=== PATIENT | male | born 1965 | race African-American/Black ===

== ENCOUNTER 2020-04-29 10:59 | Observation (INO) | payer BC, MEDICAID ==
--- NOTE | 2020-04-29 11:41 | Event Note ---
ED Screening Note Date of service: 04/29/20 Time: 11:41 ED Screening Note: This initial assessment/diagnostic orders/clinical plan/treatment(s) is/are subject to change based on patients health status, clinical progression and re- assessment by fellow clinical providers in the ED. Further treatment and workup at subsequent clinical providers discretion. Patient/guardian urged not to elope from the ED as their condition may be serious if not clinically assessed and managed. Initial orders include: chest pain workup
--- NOTE | 2020-04-29 12:09 | XRay Report ---
CHEST 2 VIEWS INDICATION: Chest Pain. COMPARISON: 04/14/2020 FINDINGS: Support devices: None. Heart: Within normal limits. Lungs/pleura: Linear scarring or segmental atelectasis in the right upper lobe is unchanged. No acute air space or interstitial disease. No pneumothorax. Additional findings: None. IMPRESSION: No acute findings. Stable linear scarring or atelectasis in the right upper lobe. Signer Name: Baltazar Marcos Jr, MD Signed: 04/29/2020 12:04 PM Workstation Name: [id number]
[2020-04-29 12:30] LABS: Basophils # (Auto) 0.1 K/mm3 (0.0-0.1); Eosinophils # (Auto) 0.4 K/mm3 (0.0-0.4); Eosinophils % (Auto) 6.2 % (0.0-4.3); Hematocrit 25.6 % (35.5-45.6); Hemoglobin 8.9 gm/dl (11.8-15.2); Lymphocytes # (Auto) 1.7 K/mm3 (1.2-5.4); Lymphocytes % (Auto) 25.1 % (13.4-35.0); Mean Corpuscular HGB Conc 35 % (32-34); Mean Corpuscular Volume 90 fl (84-94); Monocytes # (Auto) 0.4 K/mm3 (0.0-0.8); Monocytes % (Auto) 6.3 % (0.0-7.3); Platelet Count 155 K/mm3 (140-440); Red Blood Count 2.84 M/mm3 (3.65-5.03); Red Cell Distribution Width 12.5 % (13.2-15.2)
--- NOTE | 2020-04-29 12:30 | Emergency Department Report ---
ED Neuro Deficit HPI - General Chief Complaint: High BP Stated Complaint: HBP/FEET SWELLING/HANDS NUM Time Seen by Provider: 04/29/20 12:17 Source: patient, family, RN/MD, RN notes reviewed, old records reviewed Mode of arrival: Wheelchair Limitations: Language Barrier - History of Present Illness Initial Comments: Patient is a 54-year-old male that presents emergency room with complaints of left-sided numbness, elevated blood pressure, bilateral lower extremity edema up to his mid abdomen. There is a language barrier and the patient's family memb er was used to translate. Patient states that he was admitted to this hospital April 14 for left-sided numbness. Patient was discharged on April 23. Patient states that his left-sided numbness have resolved prior to discharge however has returned 24 hours ago. Patient's last known well time was approximately 10 AM April 28, 2019. Patient states that he is also developed bilateral lower extremity swelling up to his mid abdomen. Patient states that he is having a lot of tightness and he can barely put his pants on because of the leg swelling. Patient states his blood pressure has been elevated. Patient denies any other neurologic symptoms. Patient denies weakness. Patient denies difficulty moving his limbs. Patient denies chest pain or shortness of breath. Patient denies recent travel. Patient denies recent international travel. Patient denies exposure to the novel coronavirus. Patient denies sick contacts. Patient denies fever and chills. Patient denies cough. Patient denies diarrhea. Patient denies coming in contact with anybody with symptoms of the novel coronavirus. -: Sudden History of same: Yes Place: home Severity: severe Quality: numb Improves With: none Worsens With: none On Anticoagulants: Yes Context: sudden onset Associated Symptoms: headaches. denies: confusion, chest pain, cough, diaphor esis, loss of appetite, malise, nausea/vomiting, vertigo, seizures, shortness of breath, syncope, weakness - Related Data Home Medications: Home Medications Medication Instructions Recorded Confirmed Last Taken Insulin Glargine [Lantus VIAL] 35 units SUB-Q QHS 04/14/20 04/29/20 04/13/20 Previous Rx's Medication Instructions Recorded Last Taken Type Aspirin 325 mg PO QDAY #30 tablet 04/23/20 Unknown Rx AtorvaSTATin [Lipitor] 40 mg PO QHS #30 tablet 04/23/20 Unknown Rx Clopidogrel [Plavix] 75 mg PO QDAY #30 tablet 04/23/20 Unknown Rx Gabapentin 100 mg PO BID #60 capsule 04/23/20 Unknown Rx NIFEdipine XL [Procardia Xl] 60 mg PO Q12HR #120 tablet 04/23/20 Unknown Rx lisinopriL [Zestril TAB] 10 mg PO QDAY #30 tablet 04/23/20 Unknown Rx Allergies/Adverse Reactions: Allergies Allergy/AdvReac Type Severity Reaction Status Date / Time No Known Allergies Allergy Verified 04/29/20 11:01 ED Review of Systems ROS: Stated complaint: HBP/FEET SWELLING/HANDS NUM Other details as noted in HPI Constitutional: denies: chills, fever Eyes: denies: eye pain, eye discharge, vision change ENT: denies: ear pain, throat pain Respiratory: denies: cough, shortness of breath, wheezing Cardiovascular: edema. denies: chest pain, palpitations Endocrine: no symptoms reported Gastrointestinal: denies: abdominal pain, nausea, diarrhea Genitourinary: denies: urgency, dysuria Musculoskeletal: back pain. denies: joint swelling, arthralgia Skin: denies: rash, lesions Neurological: as per HPI, headache, numbness. denies: weakness Psychiatric: denies: anxiety, depression Hematological/Lymphatic: denies: easy bleeding, easy bruising ED Past Medical Hx - Past Medical History Previous Medical History?: Yes Hx Hypertension: Yes Hx Congestive Heart Failure: No Hx Diabetes: Yes Hx Asthma: No Hx COPD: No Additional medical history: Nephrotic syndrome, CKD, TIA - Surgical History Past Surgical History?: No - Family History Family history: no significant - Social History Smoking Status: Never Smoker Substance Use Type: None - Medications Home Medications: Home Medications Medication Instructions Recorded Confirmed Last Taken Type Insulin Glargine [Lantus VIAL] 35 units SUB-Q QHS 04/14/20 04/29/20 04/13/20 History Aspirin 325 mg PO QDAY #30 tablet 04/23/20 04/29/20 Unknown Rx AtorvaSTATin [Lipitor] 40 mg PO QHS #30 tablet 04/23/20 04/29/20 Unknown Rx Clopidogrel [Plavix] 75 mg PO QDAY #30 tablet 04/23/20 04/29/20 Unknown Rx Gabapentin 100 mg PO BID #60 capsule 04/23/20 04/29/20 Unknown Rx NIFEdipine XL [Procardia Xl] 60 mg PO Q12HR #120 tablet 04/23/20 04/29/20 Unknown Rx lisinopriL [Zestril TAB] 10 mg PO QDAY #30 tablet 04/23/20 04/29/20 Unknown Rx ED Neuro Physical Exam - General Limitations: Language Barrier General appearance: alert, in no apparent distress Suspected Stroke: Yes - Head Head exam: Present: atraumatic, normocephalic - Eye Eye exam: Present: normal appearance - ENT ENT exam: Present: mucous membranes moist - Neck Neck exam: Present: normal inspection - Respiratory Respiratory exam: Present: normal lung sounds bilaterally. Absent: respiratory distress - Cardiovascular Cardiovascular Exam: Present: regular rate, normal rhythm. Absent: systolic murmur, diastolic murmur, rubs, gallop - GI/Abdominal GI/Abdominal exam: Present: soft, normal bowel sounds - Rectal Rectal exam: Present: deferred - Extremities Exam Extremities exam: Present: normal inspection - Back Exam Back exam: Present: normal inspection - Neurological Exam Neurological exam: Present: alert, oriented X3 - NIHSS Assessment Interval: Baseline 1a. Level of Consciousness: alert/keenly responsive 1b. LOC Questions: answers both correctly 1c. LOC Commands: performs tasks correctly 2. Best Gaze: normal 3. Visual: no visual loss 4. Facial Palsy: normal symmetrical movement 5b. Motor Arm Right: no drift 5a. Motor Arm Left: no drift 6a. Motor Leg Left: no drift 6b. Motor Leg Right: no drift 7. Limb Ataxia: absent 8. Sensory: mild/moderate sensory loss 9. Best Language: no aphasia 10. Dysarthria: normal 11. Extinction/Inattention: no abnormality Total Score: 1 Stroke Severity: Minor Stroke - Psychiatric Psychiatric exam: Present: normal affect, normal mood - Skin Skin exam: Present: warm, dry, intact, normal color. Absent: rash ED Course Vital Signs 04/29/20 04/29/20 11:03 13:57 Temperature 97.3 F L Pulse Rate 87 Respiratory 18 16 Rate Blood Pressure 155/84 O2 Sat by Pulse 99 99 Oximetry - Reevaluation(s) Reevaluation #1: bkhb 04/29/20 12:29 Reevaluation #2: I discussed all results with patient. I discussed plan of care with patient. Patient agrees with plan of care and admission. Patient to be admitted to the hospitalist service. 04/29/20 13:44 - Consultations Consultation #1: i discussed with neuro. neuro recommends admission and mri. 04/29/20 13:14 Consultation #2: Hospitalist consulted for admission. Hospitalist to admit patient. 04/29/20 13:44 Hospitalist updated with the neurosurgery recommendations. 04/29/20 17:00 Consultation #3: I discussed the case with neuro surgery at [place], Dr. Boss. Dr. Boss does not recommend transfer and recommends admission here and a follow-up MRI and MRA and call him with the results at cell phone number . Dr. Boss recommends head of bed flat for 24 hours, no physical therapy,, a loading dose of Plavix of 75 mg x 1 and to continue his aspirin and Plavix daily doses, treat the hypertension only at [address] Boss states if the patient deteriorates or neuro exam changes to call him at his cell phone and he will approve the transfer. 04/29/20 16:49 - Lab Data Result diagrams: 04/29/20 12:02 04/29/20 12:02 Lab Results 04/29/20 04/29/20 04/29/20 Range/Units 12:02 12:02 12:02 WBC 6.7 (4.5-11.0) K/mm3 RBC 2.84 L (3.65-5.03) M/mm3 Hgb 8.9 L (11.8-15.2) gm/dl Hct 25.6 L (35.5-45.6) % MCV 90 (84-94) fl MCH 32 (28-32) pg MCHC 35 H (32-34) % RDW 12.5 L (13.2-15.2) % Plt Count 155 (140-440) K/mm3 Lymph % (Auto) 25.1 (13.4-35.0) % [place] % (Auto) 6.3 (0.0-7.3) % Eos % (Auto) 6.2 H (0.0-4.3) % Baso % (Auto) 1.0 (0.0-1.8) % Lymph # (Auto) 1.7 (1.2-5.4) K/mm3 [place] # (Auto) 0.4 (0.0-0.8) K/mm3 Eos # (Auto) 0.4 (0.0-0.4) K/mm3 Baso # (Auto) 0.1 (0.0-0.1) K/mm3 Seg Neutrophils % 61.4 (40.0-70.0) % Seg Neutrophils # 4.1 (1.8-7.7) K/mm3 PT 13.1 (12.2-14.9) Sec. INR 1.01 (0.87-1.13) APTT 31.0 (24.2-36.6) Sec. Sodium 141 (137-145) mmol/L Potassium 4.8 (3.6-5.0) mmol/L Chloride 110.5 H (98-107) mmol/L Carbon Dioxide 24 (22-30) mmol/L Anion Gap 11 mmol/L BUN 33 H (9-20) mg/dL Creatinine 2.7 H (0.8-1.3) mg/dL Estimated GFR 25 ml/min BUN/Creatinine Ratio 12 % Glucose 129 H (75-100) mg/dL POC Glucose (70-105) mg/dL Calcium 7.8 L (8.4-10.2) mg/dL Total Bilirubin < 0.20 (0.1-1.2) mg/dL AST 21 (5-40) units/L ALT 23 (7-56) units/L Alkaline Phosphatase 82 (35-129) units/L Total Creatine Kinase (55-170) units/L CK-MB (CK-2) (0.0-4.0) ng/mL CK-MB (CK-2) Rel Index (0-4) Troponin T < 0.010 (0.00-0.029) ng/mL Total Protein 6.0 L (6.3-8.2) g/dL Albumin 3.3 L (3.9-5) g/dL Albumin/Globulin Ratio 1.2 % 04/29/20 04/29/20 Range/Units 13:46 14:32 WBC (4.5-11.0) K/mm3 RBC (3.65-5.03) M/mm3 Hgb (11.8-15.2) gm/dl Hct (35.5-45.6) % MCV (84-94) fl MCH (28-32) pg MCHC (32-34) % RDW (13.2-15.2) % Plt Count (140-440) K/mm3 Lymph % (Auto) (13.4-35.0) % [place] % (Auto) (0.0-7.3) % Eos % (Auto) (0.0-4.3) % Baso % (Auto) (0.0-1.8) % Lymph # (Auto) (1.2-5.4) K/mm3 [place] # (Auto) (0.0-0.8) K/mm3 Eos # (Auto) (0.0-0.4) K/mm3 Baso # (Auto) (0.0-0.1) K/mm3 Seg Neutrophils % (40.0-70.0) % Seg Neutrophils # (1.8-7.7) K/mm3 PT (12.2-14.9) Sec. INR (0.87-1.13) APTT (24.2-36.6) Sec. Sodium (137-145) mmol/L Potassium (3.6-5.0) mmol/L Chloride (98-107) mmol/L Carbon Dioxide (22-30) mmol/L Anion Gap mmol/L BUN (9-20) mg/dL Creatinine (0.8-1.3) mg/dL Estimated GFR ml/min BUN/Creatinine Ratio % Glucose (75-100) mg/dL POC Glucose 143 H (70-105) mg/dL Calcium (8.4-10.2) mg/dL Total Bilirubin (0.1-1.2) mg/dL AST (5-40) units/L ALT (7-56) units/L Alkaline Phosphatase (35-129) units/L Total Creatine Kinase 588 H (55-170) units/L CK-MB (CK-2) 6.6 H (0.0-4.0) ng/mL CK-MB (CK-2) Rel Index 1.1 (0-4) Troponin T < 0.010 (0.00-0.029) ng/mL Total Protein (6.3-8.2) g/dL Albumin (3.9-5) g/dL Albumin/Globulin Ratio % - EKG Data -: EKG Interpreted by Ut EKG shows normal: sinus rhythm, axis, intervals, QRS complexes, ST-T waves Rate: normal - Radiology Data Radiology results: report reviewed, image reviewed CHEST 2 VIEWS INDICATION: Chest Pain. COMPARISON: 04/14/2020 FINDINGS: Support devices: None. Heart: Within normal limits. Lungs/pleura: Linear scarring or segmental atelectasis in the right upper lobe is unchanged. No acute air space or interstitial disease. No pneumothorax. Additional findings: None. IMPRESSION: No acute findings. Stable linear scarring or atelectasis in the right upper lobe. CT HEAD WITHOUT CONTRAST INDICATION / CLINICAL INFORMATION: Stroke symptoms. Code stroke.. TECHNIQUE: Axial imaging performed from the skull apex through the skull base without the use of contrast. Sagittal and coronal reformatted images. All CT scans at this location are performed using CT dose reduction for ALARA by means of automated exposure control. COMPARISON: 04/14/2020 FINDINGS: CEREBRAL PARENCHYMA: No significant abnormality. No acute territorial infarct. HEMORRHAGE: None. EXTRA-AXIAL SPACES: Normal in size and morphology for the patient's age. VENTRICULAR SYSTEM: Normal in size and morphology for the patient's age. MIDLINE SHIFT OR HERNIATION: None. CEREBELLUM / BRAINSTEM: No significant abnormality. CALVARIUM: No significant abnormality. ORBITS: Normal as visualized. PARANASAL SINUSES / MASTOID AIR CELLS: Unremarkable. The left mastoid air cells are hypoplastic. SOFT TISSUES of HEAD: No significant abnormality. ADDITIONAL FINDINGS: None. IMPRESSION: No acute intracranial abnormality. - Medical Decision Making Patient is a 54-year-old male patient that presents emergency with complaints of recurrent left-sided numbness. Patient patient's numbness had resolved prior to discharge. Patient numbness recurred approximately 24 hours prior to coming to the hospital. Patient had a code stroke initiated after initial evaluation. Patient was seen by neurology. Patient had a head CT done. Patient head CT was negative. Neurology recommended admission to the hospital for further TIA, stroke work-up and a repeat MRI and MRA. Patient had labs done which were essentially unremarkable except for CKD and anemia. Patient had a chest x-ray was negative for acute findings. Patient also complained of lower extremity edema. Patient's edema in his lower extremities and up to his mid abdomen. Patient medical findings are consistent with anasarca. Patient admitted to the hospitalist service for further evaluation treatment. - Differential Diagnosis TIA, numbness, edema, headache, elevated blood pressure, nephrotic syndrome Critical Care Time: Yes Critical care time in (mins) excluding proc time.: 55 Critical care attestation.: If time is entered above; I have spent that time in minutes in the direct care of this critically ill patient, excluding procedure time. Critical Care Time: 55 minutes ED Disposition Clinical Impression: Left sided numbness, Anasarca CKD (chronic kidney disease) Qualifiers: Chronic kidney disease stage: unspecified stage Qualified Code(s): N18.9 - Chronic kidney disease, unspecified Disposition: 09 OP ADMIT IP TO THIS HOSP Is pt being admited?: Yes Does the pt Need Aspirin: No Condition: Critical Time of Disposition: 13:44
[2020-04-29 12:39] LABS: INR 1.01 (0.87-1.13)
[2020-04-29 13:00] LABS: Alanine Aminotransferase 23 units/L (7-56); Albumin 3.3 g/dL (3.9-5); BUN/Creatinine Ratio 12; Blood Urea Nitrogen 33 mg/dL (9-20); Calcium 7.8 mg/dL (8.4-10.2); Hemolysis Index 3
--- NOTE | 2020-04-29 13:15 | Emergency Department Report ---
ED General Adult HPI - General Chief complaint: High BP Stated complaint: HBP/FEET SWELLING/HANDS NUM Time Seen by Provider: 04/29/20 12:17 Source: patient Mode of arrival: Wheelchair Limitations: Language Barrier - Related Data Home Medications Medication Instructions Recorded Confirmed Last Taken Insulin Glargine [Lantus VIAL] 35 units SUB-Q QHS 04/14/20 04/29/20 04/13/20 Previous Rx's Medication Instructions Recorded Last Taken Type Aspirin 325 mg PO QDAY #30 tablet 04/23/20 Unknown Rx AtorvaSTATin [Lipitor] 40 mg PO QHS #30 tablet 04/23/20 Unknown Rx Clopidogrel [Plavix] 75 mg PO QDAY #30 tablet 04/23/20 Unknown Rx Gabapentin 100 mg PO BID #60 capsule 04/23/20 Unknown Rx NIFEdipine XL [Procardia Xl] 60 mg PO Q12HR #120 tablet 04/23/20 Unknown Rx lisinopriL [Zestril TAB] 10 mg PO QDAY #30 tablet 04/23/20 Unknown Rx Allergies Allergy/AdvReac Type Severity Reaction Status Date / Time No Known Allergies Allergy Verified 04/29/20 11:01 ED Review of Systems ROS: Stated complaint: HBP/FEET SWELLING/HANDS NUM Other details as noted in HPI Constitutional: denies: chills, fever Eyes: denies: eye pain, eye discharge, vision change ENT: denies: ear pain, throat pain Respiratory: denies: cough, shortness of breath, wheezing Cardiovascular: edema. denies: chest pain, palpitations Endocrine: no symptoms reported Gastrointestinal: denies: abdominal pain, nausea, diarrhea Genitourinary: denies: urgency, dysuria Musculoskeletal: back pain. denies: joint swelling, arthralgia Skin: denies: rash, lesions Neurological: as per HPI, headache, numbness. denies: weakness Psychiatric: denies: anxiety, depression Hematological/Lymphatic: denies: easy bleeding, easy bruising ED Past Medical Hx - Past Medical History Previous Medical History?: Yes Hx Hypertension: Yes Hx Congestive Heart Failure: No Hx Diabetes: Yes Hx Asthma: No Hx COPD: No - Surgical History Past Surgical History?: No - Social History Smoking Status: Never Smoker Substance Use Type: None - Medications Home Medications: Home Medications Medication Instructions Recorded Confirmed Last Taken Type Insulin Glargine [Lantus VIAL] 35 units SUB-Q QHS 04/14/20 04/29/20 04/13/20 History Aspirin 325 mg PO QDAY #30 tablet 04/23/20 04/29/20 Unknown Rx AtorvaSTATin [Lipitor] 40 mg PO QHS #30 tablet 04/23/20 04/29/20 Unknown Rx Clopidogrel [Plavix] 75 mg PO QDAY #30 tablet 04/23/20 04/29/20 Unknown Rx Gabapentin 100 mg PO BID #60 capsule 04/23/20 04/29/20 Unknown Rx NIFEdipine XL [Procardia Xl] 60 mg PO Q12HR #120 tablet 04/23/20 04/29/20 Unknown Rx lisinopriL [Zestril TAB] 10 mg PO QDAY #30 tablet 04/23/20 04/29/20 Unknown Rx ED Physical Exam - General Limitations: Language Barrier General appearance: alert, in no apparent distress ED Course Vital Signs 04/29/20 04/29/20 11:03 13:57 Temperature 97.3 F L Pulse Rate 87 Respiratory 18 16 Rate Blood Pressure 155/84 O2 Sat by Pulse 99 99 Oximetry - Reevaluation(s) Reevaluation #1: 04/29/20 13:15 [facility] TeleNeurology Consult Services Stat Consult Date of Service: 04/29/2020 12:31:11 Comments/Sign-Out: Patient with hx of TIA, CKD, HTN who presents with recurrent sx of bilateral jaramillo d numbness and foot numbness more so on the left. On exam, more pronounced sensory loss on the left. Already on dual antiplatelet therapy and statin. 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 Admit for repat MRI brain to exclude CVA and MRA head to reassess vasculature. CHARLES consult for possible stent given ?failure of medical therapy. Given the language barrier, unclear if patient is truly compliant with medications. d/w Dr. Boss at [place]: would obtain Plavix studies (platelet reactivity studies) PRU and if a responder, load with plavix 300mg, if not then switch to Brillinta. IVF and allow for permissive HTN, Frequent neuro checks, if patient deteriorates or has change in neuro status then transfer to [place] for angiogram. d/w Hospitalist physician. Will need followup with inpatient neurology. Will need ESR/CELINA and workup for arteritis. Treatment of anasarca and underlying renal insuffiency per primary team. CT HEAD: Showed No Acute Hemorrhage or Acute Core Infarct Reviewed Metrics: [employer] Notification Time: 04/29/2020 12:28:10 Stamp Time: 04/29/2020 12:31:11 Callback Response Time: 04/29/2020 12:32:21 Our recommendations are outlined below. Recommendations: Antiplatelet Therapy Initiate Aspirin 325 MG Daily Initiate Plavix 75 MG Daily permissive hypertension Imaging Studies: MRI Head Therapies: Physical Therapy, Occupational Therapy, Speech Therapy Assessment When Applicable Disposition: Neurology Follow Up Recommended Sign Out: Discussed with Emergency Department Provider --------- Chief Complaint: numbness both arms and legs History of Present Illness: Patient is a 54 year old Male. Patient with hx of recent TIA, HTN, HLD who presents with pitting edema in both legs/anasarca and numbness in his extremities. 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 No weakness, no headache/dizziness. MRI brain 04/15: normal, MRA head: hypoplasic and narrowed A1 and M1 segments as well as stenosis of the basilar artery. Initially CHARLES was consulted, recommended conservative management and if recurrence consider stent placement. MRA neck: no significant stenosis in neck. Past Medical History: Hypertension Hyperlipidemia Stroke Anticoagulant use: No Antiplatelet use: asa and plavix Examination: BP(155/84), Pulse(87), Blood Glucose(129) 1A: Level of Consciousness - Alert; keenly responsive + 0 1B: Ask Month and Age - Both Questions Right + 0 1C: Blink Eyes & Squeeze Hands - Performs Both Tasks + 0 2: Test Horizontal Extraocular Movements - Normal + 0 3: Test Visual Hanna - No Visual Loss + 0 4: Test Facial Palsy (Use Grimace if Obtunded) - Minor paralysis (flat cassandra olabial fold, smile asymmetry) + 1 5A: Test Left Arm Motor Drift - No Drift for 10 Seconds + 0 5B: Test Right Arm Motor Drift - No Drift for 10 Seconds + 0 6A: Test Left Leg Motor Drift - No Drift for 5 Seconds + 0 6B: Test Right Leg Motor Drift - No Drift for 5 Seconds + 0 7: Test Limb Ataxia (FNF/Heel-Webb) - No Ataxia + 0 8: Test Sensation - Mild-Moderate Loss: Less Sharp/More Dull + 1 9: Test Language/Aphasia - Normal; No aphasia + 0 10: Test Dysarthria - Normal + 0 11: Test Extinction/Inattention - No abnormality + 0 NIHSS Score: 2 Patient/Family was informed the Neurology Consult would happen via TeleHealth consult by way of interactive audio and video telecommunications and consented to receiving care in this manner. Due to the immediate potential for life-threatening deterioration due to underlying acute neurologic illness, I spent 20 minutes providing critical care. This time includes time for face to face visit via telemedicine, review of medical records, imaging studies and discussion of findings with providers, the patient and/or family. Dr Shyanne Bryson [facility] Case [id number] 04/29/20 15:11 04/29/20 15:32 04/29/20 15:48 ED Medical Decision Making - Lab Data Result diagrams: 04/29/20 12:02 04/29/20 12:02 Critical care attestation.: If time is entered above; I have spent that time in minutes in the direct care of this critically ill patient, excluding procedure time. ED Disposition Clinical Impression: Left sided numbness, Anasarca CKD (chronic kidney disease) Qualifiers: Chronic kidney disease stage: unspecified stage Qualified Code(s): N18.9 - Chronic kidney disease, unspecified Disposition: 09 OP ADMIT IP TO THIS HOSP Condition: Critical Referrals: PRIMARY CARE, [Primary Care Provider] - 3-5 Days
--- NOTE | 2020-04-29 13:22 | Cat Scan Report ---
CT HEAD WITHOUT CONTRAST INDICATION / CLINICAL INFORMATION: Stroke symptoms. Code stroke.. TECHNIQUE: Axial imaging performed from the skull apex through the skull base without the use of cont rast. Sagittal and coronal reformatted images. All CT scans at this location are performed using CT dose reduction for ALARA by means of automated exposure control. COMPARISON: 04/14/2020 FINDINGS: CEREBRAL PARENCHYMA: No significant abnormality. No acute territorial infarct. HEMORRHAGE: None. EXTRA-AXIAL SPACES: Normal in size and morphology for the patient's age. VENTRICULAR SYSTEM: Normal in size and morphology for the patient's age. MIDLINE SHIFT OR HERNIATION: None. CEREBELLUM / BRAINSTEM: No significant abnormality. CALVARIUM: No significant abnormality. ORBITS: Normal as visualized. PARANASAL SINUSES / MASTOID AIR CELLS: Unremarkable. The left mastoid air cells are hypoplastic. SOFT TISSUES of HEAD: No significant abnormality. ADDITIONAL FINDINGS: None. IMPRESSION: No acute intracranial abnormality. CODE STROKE: Time of Communication (INSURANCE CLAIMS PROCESSOR/CDT): 1208 hours Licensed Practitioner Receiving Report: Dr. Shaji Cervantes read back was performed Signer Name: Baltazar Marcos Jr, MD Signed: 04/29/2020 1:17 PM Workstation Name: [id number]
--- NOTE | 2020-04-29 14:14 | History and Physical Report ---
History of Present Illness Chief complaint: Im weak on my left side again History of present illness: 54 YO Male with HTN, DM, CVA with resolved LHP presents to ED for evaluation. Patient states that he was in his usual state of health at his bedtime 2 days which was around 0200 hrs. Patient states that he awoke from sleep yesterday around 1000 hrs. and was found to have a return of his left-sided weakness. Patient transported to [facility] via private vehicle for further care and evaluation of the aforementioned symptoms. Patient seen and evaluated in the emergency department. All lab and imaging studies reviewed. A code stroke was called upon arrival. The patient was initiated on stroke protocol. Patient was found to have a neurologic deficit with clinical symptoms consistent with CVA. Patient denies fever, chills, chest pain, palpitation, productive cough, skin rash, recent ill contacts, known exposure to COVID-19. Prior admission on 04/15/2020 reviewed. All medication at the time of admission has been reconciled. Teleneurology consulted. Patient previous admission records reviewed. Patient was found to have basilar artery stenosis with recommendation for neuro interventional radiology evaluation if recurrent symptoms. Case discussed with teleneurology on-call who also informed neuro interventional radiology. Patient was considered a candidate for transfer to [facility]. The patient's case was discussed with Dr. Boss, who is the neurosurgeon at [facility]. Dr. Boss does not recommend transfer and recommends admission here and a follow-up MRI and MRA and call him with the results at cell phone number [phone]. Dr. Boss recommends head of bed flat for 24 hours, no physical therapy, a loading dose of Plavix of 75 mg x 1 and to continue his aspirin and Plavix daily doses. Permissive hypertension overnight. And only to treat the hypertension only at [address] Boss states if the patient deteriorates or neuro exam changes to call him at his cell phone and he will approve the transfer. Patient admitted to [facility]. The aforementioned treatment recommendations have been enacted. Past History Past Medical History: diabetes, hypertension Past Surgical History: No surgical history, Other (See HPI) Social history: single, lives with family. denies: smoking, alcohol abuse, prescription drug abuse Family history: diabetes, hypertension Medications and Allergies Allergies Allergy/AdvReac Type Severity Reaction Status Date / Time No Known Allergies Allergy Verified 04/29/20 11:01 Home Medications Medication Instructions Recorded Confirmed Last Taken Type Insulin Glargine [Lantus VIAL] 35 units SUB-Q QHS 04/14/20 04/29/20 04/13/20 History Aspirin 325 mg PO QDAY #30 tablet 04/23/20 04/29/20 Unknown Rx AtorvaSTATin [Lipitor] 40 mg PO QHS #30 tablet 04/23/20 04/29/20 Unknown Rx Clopidogrel [Plavix] 75 mg PO QDAY #30 tablet 04/23/20 04/29/20 Unknown Rx Gabapentin 100 mg PO BID #60 capsule 04/23/20 04/29/20 Unknown Rx NIFEdipine XL [Procardia Xl] 60 mg PO Q12HR #120 tablet 04/23/20 04/29/20 Unknown Rx lisinopriL [Zestril TAB] 10 mg PO QDAY #30 tablet 04/23/20 04/29/20 Unknown Rx Review of Systems Constitutional: no weight loss, no weight gain, no fever, no chills Ears, nose, mouth and throat: no ear pain, no ear discharge, no tinnitis, no dec reased hearing, no nose pain, no nasal congestion, no nasal discharge Cardiovascular: no chest pain, no orthopnea, no palpitations, no rapid/irregular heart beat, no edema Respiratory: no cough, no cough with sputum, no excessive sputum, no hemoptysis Gastrointestinal: no nausea, no vomiting, no diarrhea Genitourinary Male: no hematuria, no flank pain, no discharge, no urinary frequency, no urinary hesitancy Rectal: no pain, no incontinence, no bleeding Musculoskeletal: no neck stiffness, no neck pain, no shooting arm pain, no arm numbness/tingling, no low back pain Integumentary: no rash, no pruritis, no redness, no sores, no wounds Neurological: weakness, parathesias, numbness, no tingling, no seizures, no syncope, no convulsions, no aphasia, no confusion, no memory loss Psychiatric: no anxiety, no memory loss, no change in sleep habits, no sleep disturbances, no insomnia Endocrine: no cold intolerance, no heat intolerance, no polyphagia, no excessive thirst Hematologic/Lymphatic: no easy bruising, no easy bleeding, no lymphedema Allergic/Immunologic: no urticaria, no wheezing, no persistent infections, no angioedema Exam - Constitutional Vitals: Temp Pulse Resp BP Pulse Ox 97.3 F L 87 16 155/84 99 04/29/20 11:03 04/29/20 11:03 04/29/20 13:57 04/29/20 11:03 04/29/20 13:57 General appearance: Present: mild distress - EENT Eyes: Present: PERRL ENT: hearing intact, clear oral mucosa - Neck Neck: Present: supple, normal ROM - Respiratory Respiratory effort: normal Respiratory: bilateral: CTA - Cardiovascular Heart Sounds: Present: S1 & S2. Absent: rub, click - Extremities Extremities: pulses symmetrical, No edema Peripheral Pulses: within normal limits - Abdominal General gastrointestinal: Present: soft, non-tender, non-distended, normal bowel sounds Male genitourinary: Present: normal - Integumentary Integumentary: Present: clear, warm, dry - Musculoskeletal Musculoskeletal: left sided weakness - Psychiatric Psychiatric: appropriate mood/affect, intact judgment & insight, memory intact - Neurologic Neurologic: CNII-XII intact, moves all extremities, no gait normal HEART Score - HEART Score Troponin: Troponin T < 0.010 ng/mL (0.00-0.029) 04/29/20 12:02 Results - Labs CBC & Chem 7: 04/29/20 12:02 04/29/20 12:02 Labs: Abnormal lab results 04/29/20 04/29/20 04/29/20 Range/Units 12:02 12:02 13:46 RBC 2.84 L (3.65-5.03) M/mm3 Hgb 8.9 L (11.8-15.2) gm/dl Hct 25.6 L (35.5-45.6) % MCHC 35 H (32-34) % RDW 12.5 L (13.2-15.2) % Eos % (Auto) 6.2 H (0.0-4.3) % Chloride 110.5 H (98-107) mmol/L BUN 33 H (9-20) mg/dL Creatinine 2.7 H (0.8-1.3) mg/dL Glucose 129 H (75-100) mg/dL POC Glucose 143 H (70-105) mg/dL Calcium 7.8 L (8.4-10.2) mg/dL Total Protein 6.0 L (6.3-8.2) g/dL Albumin 3.3 L (3.9-5) g/dL Assessment and Plan - Patient Problems (1) CVA (cerebral vascular accident) Current Visit: No Status: Acute Qualifiers: Laterality of affected vessel: unspecified Plan to address problem: CVA protocol: CT head, neurochecks, seizure precautions, dual antiplatelet therapy, lipid panel, statin therapy, MRI brain, MRA brain, teleneurology consulted. Permissive hypertension overnight. Hold antihypertensive therapy for systolic blood pressure less than or equal to 200 mmHg (2) Basilar artery stenosis Current Visit: No Status: Acute Plan to address problem: MRI, MRA brain as per neurosurgery and interventional neuro neurology recommendations, supportive care, neurosurgery consulted. Notify with results of MRI/MRA brain, Notify Dr. Boss with results of MRI/MRA brain For further recommendations. Please call him with the results at cell phone number . Dr. Boss recommends head of bed flat for 24 hours, no physical therapy,, a loading dose of Plavix of 75 mg x 1 and to continue his aspirin and Plavix daily doses, treat the hypertension only at [address] Boss states if the patient deteriorates or neuro exam changes to call him at his cell phone and he will approve the transfer. (3) Diabetes Current Visit: Yes Status: Acute Plan to address problem: Sliding-scale insulin therapy, Accu-Chek, consistent carbohydrate diet, hypoglycemia protocol (4) Anasarca Current Visit: Yes Status: Acute Plan to address problem: CT scan abdomen and pelvis, supportive care, diuresis, pain control. (5) BHAVANI (acute kidney injury) Current Visit: Yes Status: Acute Plan to address problem: Nephrology team consulted, renal diet, strict I's/O, monitor urine output every shift, avoid nephrotoxic agents (6) DVT prophylaxis Current Visit: No Status: Acute Plan to address problem: SCD to bilateral lower extremities while in bed, prophylactic anticoagulation
[2020-04-29 15:17] LABS: Creatine Kinase MB 6.6 ng/mL (0.0-4.0)
[2020-04-29] MEDS ORDERED: CLOPIDOGREL 75 MG TAB PO ONE (16:50)
[2020-04-29] MEDS ORDERED: METOCLOPRAMIDE 10 MG TAB PO PRN (18:03)
[2020-04-29] MEDS ORDERED: ACETAMINOPHEN 325 MG TAB PO PRN (18:03)
[2020-04-29] MEDS ORDERED: PROMETHAZINE 25 MG RECT SUPP PR PRN (18:03)
[2020-04-29] MEDS ORDERED: ONDANSETRON 4 MG/2 ML INJ IV PRN (18:03)
[2020-04-29] MEDS ORDERED: MAGNESIUM HYDROXIDE (MOM) ORAL LIQD UDC PO PRN (18:03)
[2020-04-29] MEDS ORDERED: DEXTROSE 50% IN WATER (25GM) 50 ML SYRINGE IV PRN (18:10)
[2020-04-29] MEDS ORDERED: NIFEdipine XL 30 MG TAB PO SCH (22:00)
[2020-04-29] MEDS: GABAPENTIN 100 MG CAP PO SCH (23:30)
[2020-04-29] MEDS: INSULIN LISPRO 100 UNIT/ML VIAL 3 mL SUB-Q SCH (23:30)
[2020-04-30 05:00] LABS: Calcium 8.2 mg/dL (8.4-10.2)
[2020-04-30] MEDS: INSULIN LISPRO 100 UNIT/ML VIAL 3 mL SUB-Q SCH ×4 (08:58→22:55)
--- NOTE | 2020-04-30 09:45 | Consultation ---
History of Present Illness - Reason for Consult Consult date: 04/30/20 chronic renal failure - History of Present Illness The patient is a 54 YO [place] male with history significant for DM type 2, HTN, Hyperlipidemia, CVA/TIA, Nephrotic syndrome and CKD stage 3-4 who presented to [facility] ED 04/14 with left sided weakness. A code stroke was called upon arrival. Patient denied fever, chills, chest pain, palpitation, productive cough, skin rash, recent ill contacts, known exposure to COVID-19. He was recently admitted with similar presentation and was discharged on 04/23/2020. During the prior admission patient was found to have basilar artery stenosis with recommendation for neuro interventional radiology evaluation if recurrent symptoms. The patient was initiated on stroke protocol. Teleneurology consulted. Case discussed with teleneurology on-call who also informed neuro interventional radiology. The patient's case was discussed with Dr. Boss, who is the neurosurgeon at [facility] who recommend follow-up MRI and MRA and call him with the results. Patient admitted to [facility]. Labs notable for Creat 2.4 and BUN 27. Nephrology was consulted for further evaluation. Past History Past Medical History: diabetes, hypertension Past Surgical History: No surgical history, Other (See HPI) Social history: single, lives with family. denies: smoking, alcohol abuse, prescription drug abuse Family history: diabetes, hypertension Medications and Allergies Allergies Allergy/AdvReac Type Severity Reaction Status Date / Time No Known Allergies Allergy Verified 04/29/20 11:01 Home Medications Medication Instructions Recorded Confirmed Last Taken Type Insulin Glargine [Lantus VIAL] 35 units SUB-Q QHS 04/14/20 04/29/20 04/13/20 History Aspirin 325 mg PO QDAY #30 tablet 04/23/20 04/29/20 Unknown Rx AtorvaSTATin [Lipitor] 40 mg PO QHS #30 tablet 04/23/20 04/29/20 Unknown Rx Clopidogrel [Plavix] 75 mg PO QDAY #30 tablet 04/23/20 04/29/20 Unknown Rx Gabapentin 100 mg PO BID #60 capsule 04/23/20 04/29/20 Unknown Rx NIFEdipine XL [Procardia Xl] 60 mg PO Q12HR #120 tablet 04/23/20 04/29/20 Unknown Rx lisinopriL [Zestril TAB] 10 mg PO QDAY #30 tablet 04/23/20 04/29/20 Unknown Rx Active Meds: Active Medications Acetaminophen (Acetaminophen 325 Mg Tab) 650 mg PO Q4H PRN PRN Reason: Pain, Mild (1-3) Aspirin (Aspirin 325 Mg Tab) 325 mg PO QDAY [facility] Atorvastatin Calcium (Atorvastatin 40 Mg Tab) 40 mg PO QHS [facility] Last Admin: 04/29/20 23:30 Dose: 40 mg Documented by: Bisacodyl (Bisacodyl 10 Mg Rect Supp) 10 mg DE QDAY PRN PRN Reason: Constipation Clopidogrel Bisulfate (Clopidogrel 75 Mg Tab) 75 mg PO QDAY [facility] Dextrose (Dextrose 50% In Water (25gm) 50 Ml Syringe) 50 ml IV Q30MIN PRN; Protocol PRN Reason: Hypoglycemia Last Admin: 04/29/20 23:30 Dose: 50 ml Documented by: Gabapentin (Gabapentin 100 Mg Cap) 100 mg PO BID [facility] Last Admin: 04/29/20 23:30 Dose: 100 mg Documented by: Insulin Human Lispro (Insulin Lispro 100 Unit/Ml Vial 3 Ml) 0 unit SUB-Q ACHS [facility]; Protocol Last Admin: 04/30/20 08:58 Dose: Not Given Documented by: Magnesium Hydroxide (Magnesium Hydroxide (Mom) Oral Liqd Udc) 30 ml PO Q4H PRN PRN Reason: Constipation Metoclopramide HCl (Metoclopramide 10 Mg Tab) 10 mg PO Q6H PRN PRN Reason: Nausea And Vomiting Ondansetron HCl (Ondansetron 4 Mg/2 Ml Inj) 4 mg IV Q8H PRN PRN Reason: Nausea And Vomiting Promethazine HCl (Promethazine 25 Mg Rect Supp) 25 mg DE Q6H PRN PRN Reason: Nausea And Vomiting Sodium Chloride (Sodium Chloride 0.9% 10 Ml Flush Syringe) 10 ml IV PRN PRN PRN Reason: LINE FLUSH Exam - Vital Signs Vital signs: Vital Signs Temp Pulse Resp BP Pulse Ox 97.3 F L 87 18 155/84 99 04/29/20 11:03 04/29/20 11:03 04/29/20 11:03 04/29/20 11:03 04/29/20 11:03 Results - Lab Results 04/29/20 12:02 04/30/20 04:29 Most recent lab results Calcium 8.2 mg/dL (8.4-10.2) L 04/30/20 04:29 Assessment and Plan 1. CKD stage 4: Patient was evaluated during s recent admission. Most likely CKD stage 4 in the setting of Daibetic nephropathy. Monitor renal function. Creatinine level is about the same. Avoid nephrotoxic agents. Meds dosage absed on GFR. 2. FEN: Volume overload, start on Lasix about 48 hrs after admission to allow for permissive HTN. Patient was started on Lasix during prior admission for LE edema. Monitor lytes and volume status. 3. Nephrotic syndrome: Likely 2/2 diabetic nephropathy. CELINA, ANCA, GBM Ab, Complements and SPEP negative. D/w patient (04/21) about kidney biopsy and he was agreeable, but he is on ASA and Plavix. 4. Acute Ischemic Stroke: Followed by Neuro. 5. Basilar artery stenosis: Per Interventional neuroradiologist. 6. Hypertension: Permissive HTN. Monitor blood pressure. 7. DM type 2: Sliding scale insulin therapy, Accu-Chek, consistent carbohydrate diet, hypoglycemia protocol. 8. Normochromic anemia, POA: Monitor. Subjective: The patient was not examined today. However the examination findings from other providers noted. The current and previous medical records are reviewed in det ail as are laboratory and imaging data reviewed when appropriate. Medications being given are also reviewed. In addition the case has been discussed with the attending hospitalist and the nurse when needed. New renal recommendations as above. Examination:
[2020-04-30] MEDS: GABAPENTIN 100 MG CAP PO SCH ×2 (09:46→22:54)
[2020-04-30] MEDS: CLOPIDOGREL 75 MG TAB PO SCH (09:46)
[2020-04-30] MEDS ORDERED: LISINOPRIL 10 MG TAB PO SCH (10:00)
[2020-04-30 10:06] LABS: Bilirubin,Urine NEG (Negative); Blood,Urine SM (Negative); Color,Urine Colorless (Yellow); Urobilinogen,Urine < 2.0 mg/dL (<2.0); WBC,Urine < 1.0 /HPF (0.0-6.0)
[2020-04-30 10:08] LABS: Protein,Urine >500 mg/dL (Negative)
[2020-04-30] MEDS: ASPIRIN 325 MG TAB PO SCH (12:30)
--- NOTE | 2020-04-30 13:03 | Magnetic Resonance Report ---
MRI BRAIN WITHOUT CONTRAST INDICATION / CLINICAL INFORMATION: stroke. TECHNIQUE: Multisequence, multiplanar images were obtained. COMPARISON: CT head on 620. MR brain 04/15/2020. FINDINGS: CEREBRAL and CEREBELLAR HEMISPHERES: No evidence of mass or mass effect. No midline shift. No acute hemorrhage. No diffusion restriction to suggest acute infarct. No extra-axial fluid collection. M inimal nonspecific chronic white matter changes are again noted and unchanged. VENTRICLES: Normal in size and configuration for age. VISUALIZED ORBITS: No significant abnormality. VISUALIZED PARANASAL SINUSES: No significant abnormality. ADDITIONAL FINDINGS: None. IMPRESSION: No evidence for acute ischemia, hemorrhage or mass. Minimal nonspecific chronic white matter changes. No change since MR brain dated 04/15/2020. MRA HEAD WITHOUT CONTRAST HISTORY: Stroke COMPARISON: 04/15/2020 TECHNIQUE: Routine MRA of the head is performed. 3-D/MIP reformats postprocessed. NASCET criteria was utilized. CONTRAST: None. FINDINGS: Intracranial vertebral arteries: No significant abnormality. Basilar artery: No significant abnormality. Posterior cerebral arteries: The right P1 segment is hypoplastic. A moderate right posterior communic ating artery is identified. No high-grade stenosis or occlusion. Intracranial internal carotid arteries: No significant abnormality. Anterior cerebral arteries: No significant abnormality. Middle cerebral arteries: Moderate to severe narrowing is again seen in the right M1 segment. The rem ainder of the right MCA and left MCA are within normal limits. Additional findings: None. IMPRESSION: No change since 04/15/2020. Moderate to severe narrowing in the proximal right MCA, M1 segment, is ag ain noted. No large vessel occlusion or aneurysm. Signer Name: Baltazar Marcos Jr, MD Signed: 04/30/2020 12:58 PM Workstation Name: [id number]
--- NOTE | 2020-04-30 14:46 | Consultation ---
History of Present Illness Consult date: 04/30/20 Reason for Consult: CVA Chief complaint: Difficulty with tongue, numbness of the left-side, and swelling. History of present illness: 54 yo male with recent admission for stroke-like episode with left-sided numbness, htn, dm, who presents with a LKNormal time on 04/28/2020,, who presents with difficulty with his tongue/speaking and numbness in both his hands, along with lower extremity edema that was felt to have spread all the way up to his abdomen (pt had difficulty putting on his pants). Patient also notes "terrible pain" along his spine. Past History Past Medical History: diabetes, hypertension Past Surgical History: No surgical history, Other (See HPI) Social history: single, lives with family. denies: smoking, alcohol abuse, prescription drug abuse Family history: diabetes, hypertension Medications and Allergies Allergies Allergy/AdvReac Type Severity Reaction Status Date / Time No Known Allergies Allergy Verified 04/29/20 11:01 Home Medications Medication Instructions Recorded Confirmed Last Taken Type Insulin Glargine [Lantus VIAL] 35 units SUB-Q QHS 04/14/20 04/29/20 04/13/20 History Aspirin 325 mg PO QDAY #30 tablet 04/23/20 04/29/20 Unknown Rx AtorvaSTATin [Lipitor] 40 mg PO QHS #30 tablet 04/23/20 04/29/20 Unknown Rx Clopidogrel [Plavix] 75 mg PO QDAY #30 tablet 04/23/20 04/29/20 Unknown Rx Gabapentin 100 mg PO BID #60 capsule 04/23/20 04/29/20 Unknown Rx NIFEdipine XL [Procardia Xl] 60 mg PO Q12HR #120 tablet 04/23/20 04/29/20 Unknown Rx lisinopriL [Zestril TAB] 10 mg PO QDAY #30 tablet 04/23/20 04/29/20 Unknown Rx Active Meds: Active Medications Acetaminophen (Acetaminophen 325 Mg Tab) 650 mg PO Q4H PRN PRN Reason: Pain, Mild (1-3) Aspirin (Aspirin 325 Mg Tab) 325 mg PO QDAY [facility] Last Admin: 04/30/20 12:30 Dose: 325 mg Documented by: Atorvastatin Calcium (Atorvastatin 40 Mg Tab) 40 mg PO QHS [facility] Last Admin: 04/29/20 23:30 Dose: 40 mg Documented by: Bisacodyl (Bisacodyl 10 Mg Rect Supp) 10 mg MN QDAY PRN PRN Reason: Constipation Clopidogrel Bisulfate (Clopidogrel 75 Mg Tab) 75 mg PO QDAY [facility] Last Admin: 04/30/20 09:46 Dose: 75 mg Documented by: Dextrose (Dextrose 50% In Water (25gm) 50 Ml Syringe) 50 ml IV Q30MIN PRN; Protocol PRN Reason: Hypoglycemia Last Admin: 04/29/20 23:30 Dose: 50 ml Documented by: Gabapentin (Gabapentin 100 Mg Cap) 100 mg PO BID [facility] Last Admin: 04/30/20 09:46 Dose: 100 mg Documented by: Insulin Human Lispro (Insulin Lispro 100 Unit/Ml Vial 3 Ml) 0 unit SUB-Q ACHS [facility]; Protocol Last Admin: 04/30/20 12:26 Dose: Not Given Documented by: Magnesium Hydroxide (Magnesium Hydroxide (Mom) Oral Liqd Udc) 30 ml PO Q4H PRN PRN Reason: Constipation Metoclopramide HCl (Metoclopramide 10 Mg Tab) 10 mg PO Q6H PRN PRN Reason: Nausea And Vomiting Ondansetron HCl (Ondansetron 4 Mg/2 Ml Inj) 4 mg IV Q8H PRN PRN Reason: Nausea And Vomiting Promethazine HCl (Promethazine 25 Mg Rect Supp) 25 mg MN Q6H PRN PRN Reason: Nausea And Vomiting Sodium Chloride (Sodium Chloride 0.9% 10 Ml Flush Syringe) 10 ml IV PRN PRN PRN Reason: LINE FLUSH Review of Systems All systems: negative (as per HPI;) Physical Examination - Vital Signs Vital Signs: Vital Signs Temp Pulse Resp BP Pulse Ox 97.3 F L 87 18 155/84 99 04/29/20 11:03 04/29/20 11:03 04/29/20 11:03 04/29/20 11:03 04/29/20 11:03 - Physical Exam Narrative exam: Gen: nad, well-nourished; Head: normocephalic; Eyes: no gaze deviation; no ptosis; ENT: normal vocalization; CVS: warm and well-perfused; Pulm: no respiratory distress; GI: non-distended, protuberant; Ext: no cyanosis or edema at distal extremities; Skin: no acute rash or hives at distal extremities; Heme: no pathologic bruising or ecchymosis at distal extremities; Neuro: alert, oriented to name, (not age), month, year, surroundings, no dysarthria, no aphasia, CN 2 - PERRL, visual koch intact, CN 3, 4, 6 - EOMI, CN 5 - facial sensation decreased on left to light touch, CN 7 - facial movement symmetric, CN 8 - hearing grossly intact, CN 9, 10 - uvula midline, CN 11 - s hrug symmetric, CN 12 - tongue midline; Motor - at least 4/5 in at right exts and at least 3/5 at left exts distally; Sensory - light touch symmetric but with decreased sensation bilaterally at hands and feet, Cerebellar - fnf /hts intact, Gait - deferred secondary to fall risk; NIHSS (1a.) Level of Consciousness:0 (1b.) LOC Questions:1 (1c.) LOC Commands:0 (2.) Best Gaze:0 (3.) Visual:0 (4.) Facial Palsy:0 (5a.) Motor Arm, Left:1 (5b.) Motor Arm, Right:0 (6a.) Motor Leg, Left:2 (6b.) Motor Leg, Right:0 (7.) Limb Ataxia:0 (8.) Sensory:2 (9.) Best Language:0 (10.) Dysarthria:0 (11.) Extinction and Inattention:0 NIHSS Total Score: 6 Results - Laboratory Findings CBC and BMP: 04/29/20 12:02 04/30/20 04:29 Abnormal Lab Findings: Abnormal Labs 04/29/20 04/29/20 04/29/20 12:02 12:02 13:46 RBC 2.84 L Hgb 8.9 L Hct 25.6 L MCHC 35 H RDW 12.5 L Eos % (Auto) 6.2 H Chloride 110.5 H BUN 33 H Creatinine 2.7 H Glucose 129 H POC Glucose 143 H Calcium 7.8 L Total Creatine Kinase CK-MB (CK-2) Total Protein 6.0 L Albumin 3.3 L 04/29/20 04/29/20 04/30/20 14:32 23:25 00:17 RBC Hgb Hct MCHC RDW Eos % (Auto) Chloride BUN Creatinine Glucose POC Glucose 44 L 108 H Calcium Total Creatine Kinase 588 H CK-MB (CK-2) 6.6 H Total Protein Albumin 04/30/20 04:29 RBC Hgb Hct MCHC RDW Eos % (Auto) Chloride 108.9 H BUN 27 H Creatinine 2.4 H Glucose 71 L POC Glucose Calcium 8.2 L Total Creatine Kinase CK-MB (CK-2) Total Protein Albumin Assessment and Plan 54 yo male with recent admission for stroke-like episode with left-sided numbness, htn, dm, who presents with a LKNormal time on 04/28/2020,, who presents with difficulty with his tongue/speaking and numbness involving all the extremities (initial left-sided numbness never resolved since the last admission). Noted edema also on admission. 1. Bilateral Hand/Feet Numbness w/ Swelling - MRI Brain w/ contrast; MRI Cervical / Thoracic Spine w/ wo contrast; Lyme titer, tsh-t4, b12, folate, rpr, esr, crp, prealbumin. 2. Acute Ischemic Stroke w/ Basilar Artery Stenosis - initial evaluation done via teleneurology who recommended transfer for further valuation of basilar artery stenosis and possible intervention; per H&P - "considered a candidate for transfer to [facility]. The patient's case was discussed with Dr. Boss, who is the neurosurgeon at [facility]. Dr. Boss does not recommend transfer and recommends admission here and a follow-up MRI and MRA and call him with the results at cell phone number . Dr. Bsos recommends head of bed flat for 24 hours, no physical therapy, a loading dose of Plavix of 75 mg x 1 and to continue his aspirin and Plavix daily doses. Permissive hypertension overnight. And only to treat the hypertension only at [address] Boss states if the patient deteriorates or neuro exam changes to call him at his cell phone and he will approve the transfer." Recommend Aspirin 325 mg po qday, Plavix 75 mg po qday, statin therapy for a goal LDL of 70; MRI Brain wo contrast reveals no acute process, MRA Head w/o contrast confirms known findings, PT/OT evaluation/monitoring. 3. Recommend a bedside neurologic examination by a local neurologist at a local hospital. Dave Mejía MD Neurology
--- NOTE | 2020-04-30 16:40 | Cat Scan Report ---
CT cervical spine wo con INDICATION / CLINICAL INFORMATION: 54 years Male; neck pain. TECHNIQUE: Axial CT images of the cervical spine were obtained. Sagittal and coronal reformatted images were pr oduced. All CT scans at this location are performed using CT dose reduction for ALARA by means of aut omated exposure control. COMPARISON: None available. FINDINGS: POST-SURGICAL CHANGES: None. ALIGNMENT: No significant abnormality. VERTEBRAE: No signs of fracture. Vertebral bodies are grossly normal in height throughout. Small area of sclerosis seen leftward of midline at the C4 vertebrae which most likely represents a s mall bone island. Sclerotic metastasis cannot entirely be excluded. Comparison with any prior exam wo uld be helpful, if available. Mild osseous foraminal narrowing seen on the left at C5-6 from uncinate hypertrophy. Similar findings on the right at C6-7. There are also Modic type III changes rightward of midline at C6-7. INTRAVERTEBRAL DISCS: Mild disc disease seen at C4-5, C5-6, and C6-7. There is encroachment upon the cervical cord at C5-6. Overall, no signs of significant canal stenosis appreciated. PARASPINAL SOFT TISSUES: No significant abnormality. ADDITIONAL FINDINGS: There is near complete opacification of the partially visualized, and somewhat u nderdeveloped, left mastoid region, as well as the middle ear cavity on the left. Small air-fluid lev el noted. IMPRESSION: 1. No signs of acute bony trauma to the cervical spine. 2. Mild degenerative changes as described above. No single, dominant cause for patient's symptomatolo gy appreciated. Most marked findings appear to be at C6-7 or perhaps C5-6. 3. Left middle ear cavity and mastoid disease. Signer Name: Hugo Isaac MD, III Signed: 04/30/2020 4:36 PM Workstation Name: [id number]
--- NOTE | 2020-04-30 19:10 | Progress Note ---
Assessment and Plan -- TIA, Acute Admitted with CVA protocol: CT head, neurochecks, seizure precautions, dual antiplatelet therapy, lipid panel, statin therapy, MRI brain, MRA brain, teleneurology consulted. s/p Permissive hypertension overnight. MRI and MRA brain showed no acute changes compared to prior study. Imaging study finding discussed thoroughly with and he recommended outpatient follow-up -- Basilar artery stenosis MRI, MRA brain ordered as per neurosurgery and interventional neuro neurology recommendations -no acute changes compared to last study cont supportive care, neurosurgery consulted. Dr. Boss recommended head of bed flat for 24 hours, no physical therapy, a loading dose of Plavix of 75 mg x 1 following admission and to continue his aspirin and Plavix daily doses, treat the hypertension only at [address] Boss states if the patient deteriorates or neuro exam changes to call him at his cell phone and he will approve the transfer. -- Diabetes type II Sliding-scale insulin therapy, Accu-Chek, consistent carbohydrate diet, hypoglycemia protocol -- BHAVANI (acute kidney injury) on CKD stage IV Nephrology team consulted, renal diet, strict I's/O, monitor urine output every shift, avoid nephrotoxic agents -- DVT prophylaxis SCD to bilateral lower extremities while in bed, prophylactic anticoagulation 04/30: Spoke with Dr. Boss to update MRI and MRA results at cell phone number . he recommended no need to do any further neurological work up. He recommended plavix activity study but unfortunately will not able to do this test in this hospital. Dr. Boss recommended secondary prevention for now with aspirin and Plavix with strict blood pressure control.. Patient will need outpatient follow-up with neurology. Will order for C-spine as patient complaining of neck pain. If clinically remains stable and C-spine study normal possible discharge tomorrow. Subjective Date of service: 04/30/20 Interval history: Patient seen and examined. Medical records and medication list reviewed. No acute event overnight noted by the RN. Patient denies any chest pain or difficulty breathing. Patient is tolerating diet. Patient denies any weakness to his left side but complains of neck pain Discussed plan of care at bedside with patient. Objective - Exam Narrative Exam: GENERAL: well-developed and well-nourished [place] male lying on bed appeared to be in no discomfort. HEENT: Normocephalic. Atraumatic. No conjunctival congestion or icterus. Patient has moist mucous membranes. NECK: Supple. Trachea midline. CHEST/LUNGS: Clear to auscultated bilaterally, breathing nonlabored. No wheezes crackles or rhonchi. HEART/CARDIOVASCULAR: Regular in rate and rhythm. S1 and S2 positive. ABDOMEN: Abdomen is soft, nontender. Patient has normal bowel sounds. SKIN: There is no rash. Warm and dry. NEURO: No focal motor deficit. Follows command. MUSCULOSKELETAL: No joint effusion or tenderness. EXTRIMITY: No edema, no cyanosis or clubbing. PSYCH: Cooperative. - Constitutional Vitals: Vital Signs - 12hr 04/30/20 04/30/20 04/30/20 07:30 08:00 08:14 Temperature Pulse Rate 77 88 Respiratory 13 19 18 Rate Blood Pressure 160/85 177/105 Blood Pressure [Right] O2 Sat by Pulse 100 100 Oximetry 04/30/20 04/30/20 04/30/20 08:30 09:00 09:30 Temperature Pulse Rate 92 H 92 H 81 Respiratory 18 30 H 14 Rate Blood Pressure 178/97 178/97 173/91 Blood Pressure [Right] O2 Sat by Pulse 99 100 Oximetry 04/30/20 04/30/20 04/30/20 10:00 10:30 11:00 Temperature 98.3 F Pulse Rate 82 78 94 H Respiratory 15 18 16 Rate Blood Pressure 184/94 184/97 186/99 Blood Pressure [Right] O2 Sat by Pulse 99 97 98 Oximetry 04/30/20 04/30/20 04/30/20 11:30 13:02 13:30 Temperature Pulse Rate 90 82 Respiratory 19 13 Rate Blood Pressure 172/96 172/91 172/91 Blood Pressure [Right] O2 Sat by Pulse 97 100 99 Oximetry 04/30/20 04/30/20 04/30/20 14:00 14:30 15:00 Temperature Pulse Rate 78 83 82 Respiratory 19 13 16 Rate Blood Pressure 174/99 190/96 190/95 Blood Pressure [Right] O2 Sat by Pulse 86 98 100 Oximetry 04/30/20 04/30/20 04/30/20 15:30 15:49 16:00 Temperature Pulse Rate 85 85 79 Respiratory 16 18 14 Rate Blood Pressure 163/94 202/101 Blood Pressure 163/94 [Right] O2 Sat by Pulse 99 99 100 Oximetry 04/30/20 04/30/20 04/30/20 16:50 16:55 17:00 Temperature Pulse Rate 85 80 75 Respiratory 22 18 15 Rate Blood Pressure 178/94 178/94 Blood Pressure 178/94 [Right] O2 Sat by Pulse 100 100 100 Oximetry 04/30/20 17:30 Temperature Pulse Rate 78 Respiratory 17 Rate Blood Pressure 177/97 Blood Pressure [Right] O2 Sat by Pulse 100 Oximetry - Labs CBC & Chem 7: 04/29/20 12:02 05/01/20 04:24 Labs: Abnormal lab results 04/29/20 04/30/20 04/30/20 Range/Units 23:25 00:17 04:29 Chloride 108.9 H (98-107) mmol/L BUN 27 H (9-20) mg/dL Creatinine 2.4 H (0.8-1.3) mg/dL Glucose 71 L (75-100) mg/dL POC Glucose 44 L 108 H (70-105) mg/dL Calcium 8.2 L (8.4-10.2) mg/dL HEART Score - HEART Score Troponin: Troponin T < 0.010 ng/mL (0.00-0.029) 04/29/20 17:25
[2020-05-01] MEDS: SODIUM CHLORIDE 0.9% 1000 ML 0 ML ONE ×2 (03:17→06:55)
[2020-05-01 05:08] LABS: Calcium 8.5 mg/dL (8.4-10.2)
[2020-05-01] MEDS: INSULIN LISPRO 100 UNIT/ML VIAL 3 mL SUB-Q SCH ×3 (07:53→18:03)
--- NOTE | 2020-05-01 08:27 | Progress Note ---
Assessment and Plan 1. CKD stage 4: Patient was evaluated during s recent admission. Most likely CKD stage 4 in the setting of Daibetic nephropathy. Monitor renal function. Creatinine level is about the same. Avoid nephrotoxic agents. Meds dosage based on GFR. 2. FEN: Volume overload, start on Lasix about 48 hrs after admission to allow for permissive HTN. Patient was started on Lasix during prior admission for LE edema. Monitor lytes and volume status. 3. Nephrotic syndrome: Likely 2/2 diabetic nephropathy. CELINA, ANCA, GBM Ab, Complements and SPEP negative. D/w patient (04/21) about kidney biopsy and he was agreeable, but he is on ASA and Plavix. 4. Acute Ischemic Stroke: Followed by Neuro. 5. Basilar artery stenosis: Per Interventional neuroradiologist. 6. Hypertension: Permissive HTN. Monitor blood pressure. 7. DM type 2: Sliding scale insulin therapy, Accu-Chek, consistent carbohydrate diet, hypoglycemia protocol. 8. Normochromic anemia, POA: Monitor. F/u with me in 2-3 weeks. Subjective: The patient was not examined today. However the examination findings from other providers noted. The current and previous medical records are reviewed in detail as are laboratory and imaging data reviewed when appropriate. Medications being given are also reviewed. In addition the case has been discussed with the attending hospitalist and the nurse when needed. New renal recommendations as above. Examination: Subjective Date of service: 05/01/20 Objective - Vital Signs Vital signs: Vital Signs - 12hr 04/30/20 04/30/20 04/30/20 20:30 21:00 21:07 Temperature Pulse Rate 67 81 78 Respiratory 20 17 24 Rate Blood Pressure 177/87 178/92 Blood Pressure 178/82 [Right] O2 Sat by Pulse 97 100 100 Oximetry 04/30/20 04/30/20 04/30/20 21:30 22:00 22:30 Temperature Pulse Rate 76 71 81 Respiratory 15 17 12 Rate Blood Pressure 183/101 191/94 157/80 Blood Pressure [Right] O2 Sat by Pulse 100 97 98 Oximetry 04/30/20 04/30/20 04/30/20 23:00 23:30 23:44 Temperature Pulse Rate 77 75 75 Respiratory 14 13 17 Rate Blood Pressure 182/91 174/85 174/85 Blood Pressure [Right] O2 Sat by Pulse 98 96 100 Oximetry 05/01/20 05/01/20 05/01/20 00:00 00:30 00:44 Temperature 97.7 F Pulse Rate 67 65 Respiratory 16 20 Rate Blood Pressure 184/80 178/90 Blood Pressure [Right] O2 Sat by Pulse 100 100 Oximetry 05/01/20 05/01/20 05/01/20 01:00 01:30 02:00 Temperature Pulse Rate 69 66 70 Respiratory 16 18 13 Rate Blood Pressure 179/81 187/81 187/81 Blood Pressure [Right] O2 Sat by Pulse 97 97 98 Oximetry 05/01/20 05/01/20 05/01/20 02:30 03:00 03:30 Temperature Pulse Rate 76 66 64 Respiratory 18 12 17 Rate Blood Pressure 187/81 187/97 162/81 Blood Pressure [Right] O2 Sat by Pulse 99 100 86 Oximetry 05/01/20 05/01/20 05/01/20 04:00 04:30 05:00 Temperature Pulse Rate 69 73 70 Respiratory 16 12 11 L Rate Blood Pressure 192/93 188/95 186/95 Blood Pressure [Right] O2 Sat by Pulse 100 99 96 Oximetry 05/01/20 05/01/20 05/01/20 05:30 06:00 06:16 Temperature Pulse Rate 65 74 70 Respiratory 13 14 16 Rate Blood Pressure 186/95 156/73 Blood Pressure 156/73 [Right] O2 Sat by Pulse 95 100 100 Oximetry 05/01/20 05/01/20 05/01/20 06:30 07:00 07:27 Temperature 99.0 F Pulse Rate 74 83 137 H Respiratory 16 23 16 Rate Blood Pressure 139/118 195/99 Blood Pressure 195/99 [Right] O2 Sat by Pulse 100 99 99 Oximetry 05/01/20 07:30 Temperature Pulse Rate 80 Respiratory 17 Rate Blood Pressure 195/99 Blood Pressure [Right] O2 Sat by Pulse 99 Oximetry - Lab 04/29/20 12:02 05/01/20 04:24 Most recent lab results Calcium 8.5 mg/dL (8.4-10.2) 05/01/20 04:24 Phosphorus 4.10 mg/dL (2.5-4.5) 05/01/20 04:24 Magnesium 1.70 mg/dL (1.7-2.3) 05/01/20 04:24 Medications & Allergies - Medications Allergies/Adverse Reactions: Allergies No Known Allergies Allergy (Verified 04/29/20 11:01) Home Medications: Home Medications Medication Instructions Recorded Confirmed Last Taken Type Gabapentin 100 mg PO BID #60 capsule 04/23/20 04/29/20 Unknown Rx Aspirin 325 mg PO QDAY #30 tablet 05/01/20 Unknown Rx AtorvaSTATin [Lipitor] 40 mg PO QHS #30 tablet 05/01/20 Unknown Rx Clopidogrel [Plavix] 75 mg PO QDAY #30 tablet 05/01/20 Unknown Rx Insulin Glargine [Lantus VIAL] 10 units SUB-Q QHS 30 Days 05/01/20 04/29/20 04/13/20 Rx amLODIPine 10 mg PO QDAY #30 tablet 05/01/20 Unknown Rx carvediloL [Coreg] 6.25 mg PO BID #60 tablet 05/01/20 Unknown Rx hydrALAZINE [Apresoline TAB] 100 mg PO Q8HR #90 tablet 05/01/20 Unknown Rx Active Medications: Generic Name Dose Route Start Last Admin Trade Name Freq PRN Reason Stop Dose Admin Acetaminophen 650 mg 04/29/20 18:03 Acetaminophen 325 Mg Tab PO Q4H PRN Pain, Mild (1-3) Aspirin 325 mg 04/30/20 10:00 04/30/20 12:30 Aspirin 325 Mg Tab PO 325 mg QDAY RICKEY Administration Atorvastatin Calcium 40 mg 04/29/20 22:00 04/30/20 22:55 Atorvastatin 40 Mg Tab PO 40 mg QHS RICKEY Administration Bisacodyl 10 mg 04/29/20 18:03 Bisacodyl 10 Mg Rect Supp MT QDAY PRN Constipation Clopidogrel Bisulfate 75 mg 04/30/20 10:00 04/30/20 09:46 Clopidogrel 75 Mg Tab PO 75 mg QDAY RICKEY Administration Dextrose 50 ml 04/29/20 18:10 04/29/20 23:30 Dextrose 50% In Water (25gm) 50 Ml Syringe IV 50 ml Q30MIN PRN Administration Hypoglycemia Protocol Gabapentin 100 mg 04/29/20 22:00 04/30/20 22:54 Gabapentin 100 Mg Cap PO 100 mg BID RICKEY Administration Insulin Human Lispro 0 unit 04/29/20 22:00 05/01/20 07:53 Insulin Lispro 100 Unit/Ml Vial 3 Ml SUB-Q Not Given ACHS RICKEY Protocol Magnesium Hydroxide 30 ml 04/29/20 18:03 Magnesium Hydroxide (Mom) Oral Liqd Udc PO Q4H PRN Constipation Metoclopramide HCl 10 mg 04/29/20 18:03 Metoclopramide 10 Mg Tab PO Q6H PRN Nausea And Vomiting Ondansetron HCl 4 mg 04/29/20 18:03 Ondansetron 4 Mg/2 Ml Inj IV Q8H PRN Nausea And Vomiting Promethazine HCl 25 mg 04/29/20 18:03 Promethazine 25 Mg Rect Supp MT Q6H PRN Nausea And Vomiting Sodium Chloride 10 ml 04/29/20 18:03 Sodium Chloride 0.9% 10 Ml Flush Syringe IV PRN PRN LINE FLUSH
[2020-05-01] MEDS: GABAPENTIN 100 MG CAP PO SCH (09:51)
[2020-05-01] MEDS: CLOPIDOGREL 75 MG TAB PO SCH (09:51)
[2020-05-01] MEDS: ASPIRIN 325 MG TAB PO SCH (09:51)
[2020-05-01] MEDS ORDERED: amLODIPine 10 MG TAB PO SCH (11:00)
[2020-05-01] MEDS ORDERED: carvediloL 6.25 MG TAB PO SCH (11:00)
[2020-05-01] MEDS ORDERED: INSULIN LISPRO 100 UNIT/ML SUB-Q ONE ×2 (11:59)
[2020-05-01] MEDS ORDERED: hydrALAZINE 20 MG/1 ML INJ IV PRN (12:53)
--- NOTE | 2020-05-01 13:07 | Discharge Summary ---
Providers - Providers Date of Admission: 04/29/20 19:19 Date of discharge: 05/01/20 Attending physician: JACOB OROZCO 04/29/20 Consult to Physician [CONS] Routine Comment: Consulting Provider: MIKEY CHAVIRA Physician Instructions: Reason For Exam: cva 04/29/20 18:03 Occupational Therapy Evaluate and Treat [CONS] Routine Comment: Reason For Exam: Neuro deficits 04/29/20 18:48 Consult to Physician [CONS] Routine Comment: Consulting Provider: FABY ATKINSON Physician Instructions: Reason For Exam: BHAVANI 04/30/20 15:16 Physical Therapy Evaluation and Treat [CONS] Routine Comment: Reason For Exam: left sided weakness Primary care physician: PLANNING ASSOCIATE Hospitalization Condition: Stable Disposition: DC-01 TO HOME OR SELFCARE Time spent for discharge: 34 minutes Exam - Constitutional Vitals: Temp Pulse Resp BP Pulse Ox 99.0 F 76 19 147/80 100 05/01/20 07:27 05/01/20 11:55 05/01/20 11:30 05/01/20 11:55 05/01/20 11:30 Plan Activity: advance as tolerated Weight Bearing Status: Weight Bear as Tolerated Diet: low fat, low salt Special Instructions: record daily BP diary Additional Instructions: f/u at [facility] in one week Follow up with: KWAKU ESPANA MD [Primary Care Provider] - 7 Days FABY ATKINSON MD [Staff Physician] - 7 Days Prescriptions: AtorvaSTATin [Lipitor] 40 mg PO QHS #30 tablet amLODIPine 10 mg PO QDAY #30 tablet hydrALAZINE [Apresoline TAB] 100 mg PO Q8HR #90 tablet Aspirin 325 mg PO QDAY #30 tablet carvediloL [Coreg] 6.25 mg PO BID #60 tablet Clopidogrel [Plavix] 75 mg PO QDAY #30 tablet
[2020-05-01] MEDS ORDERED: hydrALAZINE 25 MG TAB PO SCH ×2 (14:00)
[2020-05-01] MEDS: hydrALAZINE 100 MG TAB PO SCH ×2 (15:11→21:59)
[2020-05-01 19:23] VITALS: BP 147/80
== END 2020-05-01 20:05 | disposition home or self-care (01) ==
LOC: ED 10:59 → IMCU 19:19 → UNDODISOB 05-01 20:06
PROVIDERS: ADMIT Internal Medicine; ATTEND Internal Medicine
DX: I63.9 Cerebral infarction, unspecified (principal); G45.9 Transient cerebral ischemic attack, unspecified; N17.9 Acute kidney failure, unspecified; I12.9 Hypertensive chronic kidney disease with stage 1 through stage 4 chronic kidney disease, or unspecified chronic kidney disease; N18.4 Chronic kidney disease, stage 4 (severe); E11.22 Type 2 diabetes mellitus with diabetic chronic kidney disease; D64.9 Anemia, unspecified; R60.1 Generalized edema; R29.706 NIHSS score 6; Z79.4 Long term (current) use of insulin; Z79.82 Long term (current) use of aspirin; Z79.02 Long term (current) use of antithrombotics/antiplatelets
CPT/HCPCS: 36415; 70450; 70544; 70551; 71046; 72125; 80048; 80053; 81001; 82550; 82553; 82962; 83735; 84100; 84484; 85025; 85610; 85730; 93005; 96372; 96374; 97165; 99291; A9270; G0378; J1815; J7030

== ENCOUNTER 2020-05-08 13:02 | Emergency (ER) | payer BC, MEDICAID ==
--- NOTE | 2020-05-08 13:22 | Event Note ---
ED Screening Note Date of service: 05/08/20 Time: 13:20 ED Screening Note: 54-year-old [place] male presents to the emergency room complaining of sore throat, abdominal pain. This initial assessment/diagnostic orders/clinical plan/treatment(s) is/are subject to change based on patients health status, clinical progression and re- assessment by fellow clinical providers in the ED. Further treatment and workup at subsequent clinical providers discretion. Patient/guardian urged not to elope from the ED as their condition may be serious if not clinically assessed and managed. Initial orders include:
[2020-05-08 14:53] LABS: Basophils # (Auto) 0.1 K/mm3 (0.0-0.1); Basophils % (Auto) 1.1 % (0.0-1.8); Eosinophils # (Auto) 0.4 K/mm3 (0.0-0.4); Eosinophils % (Auto) 6.4 % (0.0-4.3); Hemoglobin 8.5 gm/dl (11.8-15.2); Lymphocytes # (Auto) 1.3 K/mm3 (1.2-5.4); Lymphocytes % (Auto) 23.8 % (13.4-35.0); Mean Corpuscular HGB Conc 34 % (32-34); Mean Corpuscular Volume 92 fl (84-94); Monocytes # (Auto) 0.5 K/mm3 (0.0-0.8); Monocytes % (Auto) 8.7 % (0.0-7.3); Platelet Count 156 K/mm3 (140-440); Red Blood Count 2.73 M/mm3 (3.65-5.03)
[2020-05-08 15:09] LABS: Alanine Aminotransferase 27 units/L (7-56); Albumin 3.2 g/dL (3.9-5); BUN/Creatinine Ratio 13; Blood Urea Nitrogen 49 mg/dL (9-20); Calcium 7.5 mg/dL (8.4-10.2); Hemolysis Index 3
--- NOTE | 2020-05-08 16:48 | Emergency Department Report ---
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 He/she was evaluated in the context of the global COVID-19 pandemic, which necessitated consideration that the patient might be at risk for infection with the virus that causes COVID-19. Institutional protocols and algorithms that pertain to the evaluation of patients at risk for COVID-19 are in a state of rapid change based on information released by regulatory bodies including the CDC and federal and state organizations. These policies and algorithms were followed during the patient's care in the emergency department. Please note that these policies, procedures and recommendations changed on a rapid basis. Patient is a 54-year-old gentleman, with a history of renal insufficiency, anemia of chronic disease, stroke, nephrotic syndrome, CKD stage III. In the past, he has been seen by nephrology, Dr. Sadiq Atkinson, at this hospital. During his recent hospitalization, he was supposed to be on Lasix 40 mg. The patient presents to the ER with a complaint of lower extremity swelling, abdominal swelling, and sensation of throat swelling, which has been present since he was in the hospital during his recent admission. He denies headache, neck pain, chest pain, abdominal pain. He has mild shortness of breath. He denies nausea, vomiting, hematemesis, bright red blood per rectum, and painful urination. He states he attempted to contact an outpatient community planner to follow-up, was instructed to contact his primary care doctor, whose office he then contacted, and he was informed that he would need to wait until his primary care doctor was in the office, which would not take place until May. Thus, he presents to the ER today with a complaint of persistent swelling. His swelling is constant, does not radiate anywhere, does not have exacerbating or relieving factors. He is not quite sure what medications he is taking. He reports no change in his urinary habits -: Gradual, days(s) Location: left, right, lower extremity Consistency: constant Improves with: none Worsens with: none Associated Symptoms: denies other symptoms - Related Data Previous Rx's Medication Instructions Recorded Last Taken Type Gabapentin 100 mg PO BID #60 capsule 04/23/20 Unknown Rx Aspirin 325 mg PO QDAY #30 tablet 05/01/20 Unknown Rx AtorvaSTATin [Lipitor] 40 mg PO QHS #30 tablet 05/01/20 Unknown Rx Clopidogrel [Plavix] 75 mg PO QDAY #30 tablet 05/01/20 Unknown Rx Insulin Glargine [Lantus VIAL] 10 units SUB-Q QHS 30 Days 05/01/20 04/13/20 Rx amLODIPine 10 mg PO QDAY #30 tablet 05/01/20 Unknown Rx carvediloL [Coreg] 6.25 mg PO BID #60 tablet 05/01/20 Unknown Rx hydrALAZINE [Apresoline TAB] 100 mg PO Q8HR #90 tablet 05/01/20 Unknown Rx Furosemide [Lasix TAB] 80 mg PO QDAY #14 tablet 05/08/20 Unknown Rx Allergies Allergy/AdvReac Type Severity Reaction Status Date / Time No Known Allergies Allergy Verified 05/08/20 13:18 ED Review of Systems ROS: Stated complaint: SALLY; FACIAL/NECK SWELLING Other details as noted in HPI Constitutional: denies: fever Eyes: denies: eye discharge ENT: other (Denies loss of taste, loss of smell) Respiratory: shortness of breath Cardiovascular: edema. denies: chest pain, palpitations Gastrointestinal: denies: abdominal pain, nausea, vomiting, hematemesis, melena, hematochezia Genitourinary: denies: dysuria Musculoskeletal: myalgia, other (Lower extremity swelling) Neurological: denies: headache, weakness ED Past Medical Hx - Past Medical History Hx Hypertension: Yes Hx Congestive Heart Failure: No Hx Diabetes: Yes Hx Asthma: No Hx COPD: No Additional medical history: Nephrotic syndrome, CKD, TIA - Social History Smoking Status: Never Smoker Substance Use Type: None - Medications Home Medications: Home Medications Medication Instructions Recorded Confirmed Last Taken Type Gabapentin 100 mg PO BID #60 capsule 04/23/20 04/29/20 Unknown Rx Aspirin 325 mg PO QDAY #30 tablet 05/01/20 Unknown Rx AtorvaSTATin [Lipitor] 40 mg PO QHS #30 tablet 05/01/20 Unknown Rx Clopidogrel [Plavix] 75 mg PO QDAY #30 tablet 05/01/20 Unknown Rx Insulin Glargine [Lantus VIAL] 10 units SUB-Q QHS 30 Days 05/01/20 04/29/20 04/13/20 Rx amLODIPine 10 mg PO QDAY #30 tablet 05/01/20 Unknown Rx carvediloL [Coreg] 6.25 mg PO BID #60 tablet 05/01/20 Unknown Rx hydrALAZINE [Apresoline TAB] 100 mg PO Q8HR #90 tablet 05/01/20 Unknown Rx Furosemide [Lasix TAB] 80 mg PO QDAY #14 tablet 05/08/20 Unknown Rx ED Physical Exam - General Limitations: Language Barrier General appearance: alert, in no apparent distress - Head Head exam: Present: atraumatic, normocephalic - Eye Eye exam: Present: normal appearance, EOMI. Absent: nystagmus - ENT ENT exam: Present: normal exam, normal orophraynx, mucous membranes moist, normal external ear exam, other (Patient is speaking in full sentences. There is no stridor. There is no elevation of the base of the tongue. There is no tracheal tenderness.) - Neck Neck exam: Present: normal inspection, full ROM. Absent: tenderness, meningismus - Respiratory Respiratory exam: Present: normal lung sounds bilaterally. Absent: respiratory distress, wheezes, rales, rhonchi, stridor, decreased breath sounds - Cardiovascular Cardiovascular Exam: Present: regular rate, normal rhythm, normal heart sounds. Absent: bradycardia, tachycardia, irregular rhythm, systolic murmur, diastolic murmur, rubs, gallop - GI/Abdominal GI/Abdominal exam: Present: soft, normal bowel sounds. Absent: distended, tenderness, guarding, rebound, rigid, pulsatile mass - Rectal Rectal exam: Present: deferred - Extremities Exam Extremities exam: Present: normal inspection, full ROM, pedal edema (3+ edema in the bilateral lower extremities), other (2+ pulses noted in the bilateral upper and lower extremities. There is no palpable cord. negative Homans sign. Muscular compartments are soft. The pelvis is stable.). Absent: calf tenderness - Back Exam Back exam: Present: normal inspection, full ROM. Absent: tenderness, CVA tenderness (R), CVA tenderness (L), paraspinal tenderness, vertebral tenderness - Neurological Exam Neurological exam: Present: alert, other (No facial droop. Tongue midline. Extraocular movements intact bilaterally. Facial sensation intact to light touch in V1, V2, V3 distribution bilaterally. 5 and a 5 strength in 4 extremities. Sensation intact to light touch in 4 extremities.) - Psychiatric Psychiatric exam: Present: normal affect, normal mood - Skin Skin exam: Present: warm, dry, intact, normal color. Absent: rash ED Course Vital Signs 05/08/20 05/08/20 05/08/20 13:19 17:31 17:37 Temperature 97.6 F Pulse Rate 77 82 Respiratory 18 18 18 Rate Blood Pressure 134/73 Blood Pressure 134/87 [Right] O2 Sat by Pulse 100 99 Oximetry - Reevaluation(s) Reevaluation #1: 05/08/20 17:17 Differential diagnosis, including but not limited to chronic renal insufficiency, dependent edema, medication noncompliance, electrolyte derangement Assessment and plan: 54-year-old gentleman, who is afebrile, with reassuring vital signs, Saturating at 98/100% on room air, who is not currently tachypneic, tachycardic, or hypoxic, who is speaking in full sentences, without stridor, with no obvious visible swelling of his tongue, or uvula, oral structures, who has no neck tenderness with a supple neck on my exam, with a primary complaint of lower extremity swelling, abdominal swelling, and subjective pharyngeal swelling. He indicates he has no physical pain. Examination suggestive of lower extremity edema and fluid overload. Abdomen soft and benign, without rebound, guarding or peritoneal signs. Has acute on chronic renal insufficiency, and hyperkalemia, with a potassium of 5.5. Lungs are clear. X-ray of the chest is pending. The patient denies physical pain. I contacted nephrology on-call, Dr. Sadiq Atkinson, And I discussed the patient's history, physical, pertinent laboratory studies and physical exam findings. He advises that he can see the patient first thing Monday or Monday morning of next week. Recommends Lasix, 80 mg once daily, and also is in agreement with Kayexalate, IV Lasix in the ER, and monitoring. Given that EKG does not show significant abnormalities, and the patient is saturating well on room air, protecting his airway, and has close outpatient follow-up arranged, I think this plan of care is reasonable. We will discussed this with the patient using a Burmese cotton header 05/08/20 17:19 Reevaluation #2: 05/08/20 18:10 Reassessed. No acute distress. Speaking in complete sentences. Playing on his cell phone on my repeat evaluation. Went back and discussed his community planner recommendations, using cotton header: [id number]. Counseled patient on need to closely follow-up with his outpatient community planner. Patient verbalizes understanding ED Medical Decision Making - Lab Data Result diagrams: 05/08/20 14:36 05/08/20 14:36 Vital Signs 05/08/20 13:19 Temperature 97.6 F Pulse Rate 77 Respiratory 18 Rate Blood Pressure 134/73 O2 Sat by Pulse 100 Oximetry Lab Results 05/08/20 05/08/20 Range/Units 14:36 14:36 WBC 5.5 (4.5-11.0) K/mm3 RBC 2.73 L (3.65-5.03) M/mm3 Hgb 8.5 L (11.8-15.2) gm/dl Hct 25.0 L (35.5-45.6) % MCV 92 (84-94) fl MCH 31 (28-32) pg MCHC 34 (32-34) % RDW 12.0 L (13.2-15.2) % Plt Count 156 (140-440) K/mm3 Lymph % (Auto) 23.8 (13.4-35.0) % [place] % (Auto) 8.7 H (0.0-7.3) % Eos % (Auto) 6.4 H (0.0-4.3) % Baso % (Auto) 1.1 (0.0-1.8) % Lymph # (Auto) 1.3 (1.2-5.4) K/mm3 [place] # (Auto) 0.5 (0.0-0.8) K/mm3 Eos # (Auto) 0.4 (0.0-0.4) K/mm3 Baso # (Auto) 0.1 (0.0-0.1) K/mm3 Seg Neutrophils % 60.0 (40.0-70.0) % Seg Neutrophils # 3.3 (1.8-7.7) K/mm3 Sodium 142 (137-145) mmol/L Potassium 5.5 H (3.6-5.0) mmol/L Chloride 113.2 H (98-107) mmol/L Carbon Dioxide 21 L (22-30) mmol/L Anion Gap 13 mmol/L BUN 49 H (9-20) mg/dL Creatinine 3.7 H (0.8-1.3) mg/dL Estimated GFR 17 ml/min BUN/Creatinine Ratio 13 % Glucose 183 H (75-100) mg/dL Calcium 7.5 L (8.4-10.2) mg/dL Total Bilirubin < 0.20 (0.1-1.2) mg/dL AST 20 (5-40) units/L ALT 27 (7-56) units/L Alkaline Phosphatase 80 (35-129) units/L Total Protein 5.8 L (6.3-8.2) g/dL Albumin 3.2 L (3.9-5) g/dL Albumin/Globulin Ratio 1.2 % - EKG Data -: EKG Interpreted by Ut EKG shows normal: sinus rhythm Rate: normal - EKG Data 05/08/20 17:16 Sinus rhythm, 60 bpm, normal axis, QTC 441 ms, left ventricular hypertrophy, and motion artifact. [place] intervals within normal limits. This EKG is not a STEMI. Next - Radiology Data Radiology results: pending, report reviewed, image reviewed CHEST 1 VIEW 05/08/2020 4:33 PM INDICATION / CLINICAL INFORMATION: dyspnea. COMPARISON: 04/29/2020 FINDINGS: SUPPORT DEVICES: None. HEART / MEDIASTINUM: No significant abnormality. LUNGS / PLEURA: Stable linear scarring right upper lobe. No pneumothorax. ADDITIONAL FINDINGS: No significant additional findings. IMPRESSION: 1. No acute findings. Signer Name: Adam Razo MD Signed: 05/08/2020 4:35 PM Workstation Name: [id number] Critical Care Time: Yes Critical care time in (mins) excluding proc time.: 35 Critical care attestation.: If time is entered above; I have spent that time in minutes in the direct care of this critically ill patient, excluding procedure time. ED Disposition Clinical Impression: Acute on chronic renal insufficiency, Hyperkalemia Edema Qualifiers: Edema type: unspecified Qualified Code(s): R60.9 - Edema, unspecified Disposition: DC-01 TO HOME OR SELFCARE Is pt being admited?: No Does the pt Need Aspirin: No Condition: Good Instructions: End-Stage Kidney Disease Additional Instructions: Please continue current outpatient medications. Please call up the n ephrologist, Dr. Atkinson, First thing Monday morning, let front office staff know that we have spoken to him, and he would like to see you in the office next week, Monday or Monday for repeat laboratory studies, and for repeat follow-up visit. Please take the prescribed Lasix as directed. Please note that the Kayexalate medication which was prescribed to the patient today will cause him to defecate frequently. This is normal and expected. Please return to the emergency room right away with new pain, worsened pain, migration of pain, projectile vomiting, change in mental status, confusion, inability to tolerate liquid feeds, new, worsened or different symptoms not present on the initial emergency room evaluation. Prescriptions: Furosemide [Lasix TAB] 80 mg PO QDAY #14 tablet Referrals: FABY ATKINSON MD [Primary Care Provider] - 05/11/20
[2020-05-08] MEDS ORDERED: SODIUM POLYSTYRENE 15 GM/60 ML ORAL LIQD PO ONE (17:12)
[2020-05-08] MEDS ORDERED: INSULIN REGULAR, HUMAN 100 UNIT/ML 3ML VIAL IV ONE (17:12)
[2020-05-08] MEDS ORDERED: FUROSEMIDE 40 MG/4 ML INJ IV ONE (17:12)
[2020-05-08] MEDS ORDERED: DEXTROSE 50% IN WATER (25GM) 50 ML SYRINGE IV ONE (17:12)
[2020-05-08 17:32] VITALS: BP 134/87
--- NOTE | 2020-05-08 17:39 | XRay Report ---
CHEST 1 VIEW 05/08/2020 4:33 PM INDICATION / CLINICAL INFORMATION: dyspnea. COMPARISON: 04/29/2020 FINDINGS: SUPPORT DEVICES: None. HEART / MEDIASTINUM: No significant abnormality. LUNGS / PLEURA: Stable linear scarring right upper lobe. No pneumothorax. ADDITIONAL FINDINGS: No significant additional findings. IMPRESSION: 1. No acute findings. Signer Name: Adam Razo MD Signed: 05/08/2020 5:35 PM Workstation Name: [id number]
[2020-05-08] MEDS ORDERED: INSULIN REGULAR, HUMAN 100 UNITS/1 ML ONE (18:00)
[2020-05-11 12:50] LABS: Bilirubin,Urine NEG (Negative); Blood,Urine SM (Negative); Color,Urine Straw (Yellow); RBC,Urine < 1.0 /HPF (0.0-6.0); Sperm,Urine FEW /HPF (NP); Urobilinogen,Urine < 2.0 mg/dL (<2.0)
== END 2020-05-08 18:25 | disposition home or self-care (01) ==
LOC: ED 13:02
DX: E11.22 Type 2 diabetes mellitus with diabetic chronic kidney disease (principal); I12.9 Hypertensive chronic kidney disease with stage 1 through stage 4 chronic kidney disease, or unspecified chronic kidney disease; N18.9 Chronic kidney disease, unspecified; E87.5 Hyperkalemia; R60.9 Edema, unspecified; Z79.82 Long term (current) use of aspirin; Z79.899 Other long term (current) drug therapy
CPT/HCPCS: 36415; 71045; 80053; 81001; 85025; 93005; 96374; 96375; 99284; J1940; J1815

== ENCOUNTER 2020-05-11 12:06 | Emergency (ER) | payer BC ==
--- NOTE | 2020-05-11 12:54 | Event Note ---
ED Screening Note ED Screening Note: Language line used for [place] interpretation Patient presents for anasarca and shortness of breath Has been experiencing the symptoms since 04/14/2020 Has been evaluated in the emergency department and admitted to this hospital for the symptoms He was supposed to follow-up with project construction assistant manager either today or tomorrow but due to the office being closed he was not able to be seen and he reported to the emergency room due to worsening shortness of breath and anasarca This initial assessment/diagnostic orders/clinical plan/treatment(s) is/are subject to change based on patients health status, clinical progression and re- assessment by fellow clinical providers in the ED. Further treatment and workup at subsequent clinical providers discretion. Patient/guardian urged not to elope from the ED as their condition may be serious if not clinically assessed and managed. Initial orders include: labs, EKG, CXR, UA
--- NOTE | 2020-05-11 13:12 | Emergency Department Report ---
HPI - General Chief Complaint: Dyspnea/Respdistress Time Seen by Provider: 05/11/20 12:53 - HPI HPI: Room 43 The patient is a 54-year-old male present with a chief complaint of edema and shortness of breath. Patient has history of renal insufficiency was seen in this hospital 05/08/2020 for extremity edema and shortness of breath. The patient was treated and discharged at that time scheduled to follow-up with a house fellow today. Patient states today he was turned away because it is a federal holiday so he came to the emergency department for continued swelling in his arms legs and shortness of breath. The patient states his symptoms have not changed. History is obtained through use of language line and the patient states that he does have an appointment to see the house fellow tomorrow ED Past Medical Hx - Past Medical History Previous Medical History?: Yes Hx Hypertension: Yes Hx Diabetes: Yes Hx Renal Disease: Yes (Renal insufficiency) Additional medical history: Nephrotic syndrome, CKD, TIA - Surgical History Past Surgical History?: No - Family History Family history: no significant - Social History Smoking Status: Never Smoker Substance Use Type: None - Medications Home Medications: Home Medications Medication Instructions Recorded Confirmed Last Taken Type Gabapentin 100 mg PO BID #60 capsule 04/23/20 04/29/20 Unknown Rx Aspirin 325 mg PO QDAY #30 tablet 05/01/20 Unknown Rx AtorvaSTATin [Lipitor] 40 mg PO QHS #30 tablet 05/01/20 Unknown Rx Clopidogrel [Plavix] 75 mg PO QDAY #30 tablet 05/01/20 Unknown Rx Insulin Glargine [Lantus VIAL] 10 units SUB-Q QHS 30 Days 05/01/20 04/29/20 04/13/20 Rx amLODIPine 10 mg PO QDAY #30 tablet 05/01/20 Unknown Rx carvediloL [Coreg] 6.25 mg PO BID #60 tablet 05/01/20 Unknown Rx hydrALAZINE [Apresoline TAB] 100 mg PO Q8HR #90 tablet 05/01/20 Unknown Rx Furosemide [Lasix TAB] 80 mg PO QDAY #14 tablet 05/08/20 Unknown Rx HYDROcodone/APAP 5-325 [[place] 1 - 2 each PO Q6HR PRN #14 tablet 05/11/20 U nknown Rx 5/325] ED Review of Systems ROS: Stated complaint: SWELLING [place] HANDS/LEGS/ABDOMEN/FACE Other details as noted in HPI Constitutional: no symptoms reported Eyes: denies: eye pain ENT: denies: throat pain Respiratory: shortness of breath Cardiovascular: denies: chest pain Endocrine: no symptoms reported Gastrointestinal: denies: abdominal pain Genitourinary: denies: dysuria Musculoskeletal: denies: back pain Skin: other (Edema) Neurological: denies: headache Physical Exam - Physical Exam Vital Signs: Vital Signs 05/11/20 12:20 Temperature 97.7 F Pulse Rate 73 Respiratory 18 Rate Blood Pressure 98/54 O2 Sat by Pulse 98 Oximetry Physical Exam: GENERAL: The patient is well-developed well-nourished male lying on stretcher not appearing to be in acute distress. [] HEENT: Normocephalic. Atraumatic. Extraocular motions are intact. Patient has moist mucous membranes. NECK: Supple. Trachea midline CHEST/LUNGS: Clear to auscultation. There is no respiratory distress noted. HEART/CARDIOVASCULAR: Regular. There is no tachycardia. There is no gallop rub or murmur. ABDOMEN: Abdomen is soft, nontender. Patient has normal bowel sounds. There is no abdominal distention. SKIN: There is no rash. There is 2+ bilateral lower extremity pitting edema. There is no diaphoresis. NEURO: The patient is awake, alert, and oriented. The patient is cooperative. The patient has normal speech MUSCULOSKELETAL: There is no evidence of acute injury. ED Course Vital Signs 05/11/20 12:20 Temperature 97.7 F Pulse Rate 73 Respiratory 18 Rate Blood Pressure 98/54 O2 Sat by Pulse 98 Oximetry - Consultations Consultation #1: 05/11/20 15:49 Nephrology paged 05/11/20 16:[address] Atkinson-patient can follow-up in office tomorrow keep his appointment ED Medical Decision Making - Lab Data Result diagrams: 05/11/20 13:53 05/11/20 13:53 Laboratory Tests 05/11/20 05/11/20 13:53 13:53 WBC 5.6 RBC 2.43 L Hgb 7.6 L Hct 21.8 L MCV 90 MCH 31 MCHC 35 H RDW 12.1 L Plt Count 127 L Lymph % (Auto) 27.1 [place] % (Auto) 11.2 H Eos % (Auto) 5.8 H Baso % (Auto) 1.0 Lymph # (Auto) 1.5 [place] # (Auto) 0.6 Eos # (Auto) 0.3 Baso # (Auto) 0.1 Seg Neutrophils % 54.9 Seg Neutrophils # 3.1 Sodium 140 Potassium 4.5 Chloride 107.5 H Carbon Dioxide 23 Anion Gap 14 BUN 42 H Creatinine 3.5 H Estimated GFR 18 BUN/Creatinine Ratio 12 Glucose 274 H Calcium 7.8 L Total Bilirubin < 0.20 AST 25 ALT 28 Alkaline Phosphatase 91 Troponin T 0.014 NT-Pro-B Natriuret Pep 917.2 H Total Protein 5.9 L Albumin 3.1 L Albumin/Globulin Ratio 1.1 - Differential Diagnosis Peripheral edema Critical care attestation.: If time is entered above; I have spent that time in minutes in the direct care of this critically ill patient, excluding procedure time. ED Disposition Clinical Impression: Renal insufficiency, Peripheral edema Disposition: DC- TO HOME OR SELFCARE Is pt being admited?: No Does the pt Need Aspirin: No Condition: Stable Additional Instructions: Return to the emergency department should you develop worsening symptoms, inability to tolerate food or liquids, high fever or any other concerns Prescriptions: HYDROcodone/APAP 5-325 [[place] 5/325] 1 - 2 each PO Q6HR PRN #14 tablet PRN Reason: Pain Referrals: PRIMARY CARE, [Primary Care Provider] - 3-5 Days FABY ATKINSON MD [Staff Physician] - 05/12/20 (Keep your appointment to see Dr. Atkinson tomorrow.) Time of Disposition: 16:22
--- NOTE | 2020-05-11 13:29 | XRay Report ---
XR chest 1V ap INDICATION / CLINICAL INFORMATION: SOB. COMPARISON: 05/08/2020 FINDINGS: SUPPORT DEVICES: None. HEART /PULMONARY VASCULATURE: No significant abnormality. LUNGS / PLEURA: Decreased lung volumes with similar linear opacity in the right upper lung, likely re flecting atelectasis/scarring. No new or increasing airspace consolidation. No pleural effusion. No p neumothorax. ADDITIONAL FINDINGS: No significant additional findings. IMPRESSION: 1. No acute findings. No interval change. Signer Name: Zhang Stallings MD Signed: 05/11/2020 1:24 PM Workstation Name: [id number]
[2020-05-11 14:40] LABS: Basophils # (Auto) 0.1 K/mm3 (0.0-0.1); Eosinophils # (Auto) 0.3 K/mm3 (0.0-0.4); Eosinophils % (Auto) 5.8 % (0.0-4.3); Hematocrit 21.8 % (35.5-45.6); Hemoglobin 7.6 gm/dl (11.8-15.2); Lymphocytes # (Auto) 1.5 K/mm3 (1.2-5.4); Lymphocytes % (Auto) 27.1 % (13.4-35.0); Mean Corpuscular HGB Conc 35 % (32-34); Mean Corpuscular Volume 90 fl (84-94); Monocytes # (Auto) 0.6 K/mm3 (0.0-0.8); Monocytes % (Auto) 11.2 % (0.0-7.3); Platelet Count 127 K/mm3 (140-440); Red Blood Count 2.43 M/mm3 (3.65-5.03); Red Cell Distribution Width 12.1 % (13.2-15.2)
[2020-05-11 15:04] LABS: Alanine Aminotransferase 28 units/L (7-56); Albumin 3.1 g/dL (3.9-5); BUN/Creatinine Ratio 12; Blood Urea Nitrogen 42 mg/dL (9-20); Calcium 7.8 mg/dL (8.4-10.2); Hemolysis Index 17
[2020-05-11 15:19] VITALS: BP 123/76
== END 2020-05-11 17:01 | disposition home or self-care (01) ==
LOC: ED 12:06
DX: N28.9 Disorder of kidney and ureter, unspecified (principal); R60.9 Edema, unspecified; I10 Essential (primary) hypertension; E11.9 Type 2 diabetes mellitus without complications; Z79.4 Long term (current) use of insulin; Z79.899 Other long term (current) drug therapy
CPT/HCPCS: 36415; 71045; 80053; 83880; 84484; 85025

== ENCOUNTER 2020-05-23 21:49 | Emergency (ER) | payer BC ==
--- NOTE | 2020-05-23 22:25 | Event Note ---
ED Screening Note Date of service: 05/23/20 ED Screening Note: Patient is a 54-year-old [place] male with a history of chronic kidney disease who presents to the ED with complaint of acute onset persistent severe headache, nausea, vomiting, photophobia and blurry vision as well as shortness of breath and persistent dry cough for the last 4 days. Patient states that the symptoms are worsened in the last 2 days. Patient denies dizziness, syncope, loss of consciousness, vision loss, change in speech, neck pain, fever, chills, abdominal pain, chest pain or dysuria and urinary frequency and urgency. This initial assessment/diagnostic orders/clinical plan/treatment(s) is/are subject to change based on patients health status, clinical progression and re- assessment by fellow clinical providers in the ED. Further treatment and workup at subsequent clinical providers discretion. Patient/guardian urged not to elope from the ED as their condition may be serious if not clinically assessed and managed. Initial orders include: CBC, CMP, troponin, chest x-ray, EKG
--- NOTE | 2020-05-23 22:42 | XRay Report ---
CHEST 1 VIEW 10:36 PM INDICATION / CLINICAL INFORMATION: Cough and dyspnea. COMPARISON: 04/14/20 through 05/11/20. FINDINGS: SUPPORT DEVICES: None. HEART / MEDIASTINUM: The heart size and pulmonary vasculature are normal. LUNGS / PLEURA: Moderate focal subsegmental parenchymal opacity in the right upper lobe has not morfin ed over serial exams. No new pulmonary or pleural abnormality. No pneumothorax. ADDITIONAL FINDINGS: Mild thoracic spondylosis. IMPRESSION: 1. No acute abnormality or significant change. 2. Moderate focal subsegmental atelectasis/scarring in the right upper lobe has not changed since . Signer Name: Jair Mejía MD Signed: 05/23/2020 10:38 PM Workstation Name: [id number]
[2020-05-24 00:22] LABS: Alanine Aminotransferase 39 units/L (7-56); Albumin 3.6 g/dL (3.9-5); BUN/Creatinine Ratio 15; Blood Urea Nitrogen 50 mg/dL (9-20); Hemolysis Index 9
[2020-05-24 00:33] LABS: Basophils # (Auto) 0.1 K/mm3 (0.0-0.1); Basophils % (Auto) 0.9 % (0.0-1.8); Eosinophils # (Auto) 0.3 K/mm3 (0.0-0.4); Eosinophils % (Auto) 5.9 % (0.0-4.3); Hematocrit 24.9 % (35.5-45.6); Hemoglobin 8.5 gm/dl (11.8-15.2); Lymphocytes # (Auto) 1.8 K/mm3 (1.2-5.4); Lymphocytes % (Auto) 29.8 % (13.4-35.0); Mean Corpuscular HGB Conc 34 % (32-34); Mean Corpuscular Volume 91 fl (84-94); Monocytes # (Auto) 0.6 K/mm3 (0.0-0.8); Monocytes % (Auto) 9.6 % (0.0-7.3); Platelet Count 101 K/mm3 (140-440); Red Blood Count 2.76 M/mm3 (3.65-5.03); Red Cell Distribution Width 12.6 % (13.2-15.2)
[2020-05-24 00:36] LABS: INR 1.05 (0.87-1.13)
[2020-05-24] MEDS ORDERED: METOCLOPRAMIDE 10 MG/2 ML INJ IV ONE (01:52)
[2020-05-24] MEDS ORDERED: diphenhydrAMINE 50 MG/ML VIAL IV ONE (01:52)
[2020-05-24] MEDS ORDERED: BUTALB/ACETAMINOPHEN/CAFFEINE TAB PO ONE (01:52)
--- NOTE | 2020-05-24 02:17 | Emergency Department Report ---
ED General Adult HPI - General Chief complaint: Headache Stated complaint: headache PUI?: No Time Seen by Provider: 05/24/20 00:34 Source: patient, family, RN notes reviewed, old records reviewed Mode of arrival: Ambulatory Limitations: Language Barrier - History of Present Illness Initial comments: The patient was evaluated in the emergency department for symptoms described in the history of present illness. He/she was evaluated in the context of the global COVID-19 pandemic, which necessitated consideration that the patient might be at risk for infection with the virus that causes COVID-19. Institutional protocols and algorithms that pertain to the evaluation of patients at risk for COVID-19 are in a state of rapid change based on information released by regulatory bodies including the CDC and federal and state organizations. These policies and algorithms were followed during the patient's care in the emergency department. Please note that these policies, procedures and recommendations changed on a rapid basis. Desk Interviewer number: [id number] Patient is a 54-year-old gentleman. I have evaluated him in the past. He has a history of stroke, diabetes, neuropathy, and renal insufficiency. The patient presents to the ER today with a complaint of headache. The headache is occipital, and left parietal. The headache is present for 4 days. The headache worsens when it rains on the patient's head, or when he ware his hair. The patient denies loss of vision/blurry vision. He denies neck pain. He denies chest pain and abdominal pain. He has no shortness of breath at this time. He has chronic lower extremity swelling. He denies loss of taste and loss of smell. He is not quite sure if he is taken anything [id number] for this. His family brought him here because he was referred to an outpatient neurologist, Dr. Cathie De Dios, however, the patient's been unable to obtain an appointment, secondary to insurance issues. So, his family brought him here for treatment. The patient does not describe the headache as a sudden or thunderclap in nature. The headache is not described as maximal in intensity. The headache is described as constant for the past 4 days. No fever. No extremity weakness/numbness. No unsteady gait. Chronic cough. Please note that this patient has had extensive neuroimaging at this facility within the past few weeks. He has had multiple MRIs which have not demonstrated acute stroke, although, he did have MRA which did demonstrate stenosis, without evidence of occlusion. -: Gradual, days(s) Location: head Radiation: non-radiation Consistency: constant Improves with: other Worsens with: none - Related Data Previous Rx's Medication Instructions Recorded Last Taken Type Gabapentin 100 mg PO BID #60 capsule 04/23/20 Unknown Rx Aspirin 325 mg PO QDAY #30 tablet 05/01/20 Unknown Rx AtorvaSTATin [Lipitor] 40 mg PO QHS #30 tablet 05/01/20 Unknown Rx Clopidogrel [Plavix] 75 mg PO QDAY #30 tablet 05/01/20 Unknown Rx Insulin Glargine [Lantus VIAL] 10 units SUB-Q QHS 30 Days 05/01/20 04/13/20 Rx amLODIPine 10 mg PO QDAY #30 tablet 05/01/20 Unknown Rx carvediloL [Coreg] 6.25 mg PO BID #60 tablet 05/01/20 Unknown Rx hydrALAZINE [Apresoline TAB] 100 mg PO Q8HR #90 tablet 05/01/20 Unknown Rx Furosemide [Lasix TAB] 80 mg PO QDAY #14 tablet 05/08/20 Unknown Rx Acetaminophen [Non-Aspirin Extra 500 mg PO Q6HR PRN #30 tablet 05/24/20 Unknown Rx Strength] Metoclopramide [Reglan] 10 mg PO QID PRN #30 tablet 05/24/20 Unknown Rx Allergies Allergy/AdvReac Type Severity Reaction Status Date / Time No Known Allergies Allergy Verified 05/08/20 13:18 ED Review of Systems ROS: Stated complaint: HEADACHE, BRAIN BLEED, BLURRY VISION Other details as noted in HPI Constitutional: denies: fever, malaise Eyes: denies: eye pain, vision change ENT: denies: throat pain Respiratory: cough Cardiovascular: edema. denies: chest pain Gastrointestinal: denies: abdominal pain, nausea, vomiting, hematemesis, melena, hematochezia Musculoskeletal: other (Chronic lower extremity swelling) Neurological: headache. denies: weakness ED Past Medical Hx - Past Medical History Previous Medical History?: Yes Hx Hypertension: Yes Hx Congestive Heart Failure: No Hx Diabetes: Yes Hx Renal Disease: Yes (Renal insufficiency) Hx Asthma: No Hx COPD: No Additional medical history: Nephrotic syndrome, CKD, TIA. Brain Bleed - Surgical History Past Surgical History?: No - Social History Smoking Status: Never Smoker Substance Use Type: None - Medications Home Medications: Home Medications Medication Instructions Recorded Confirmed Last Taken Type Gabapentin 100 mg PO BID #60 capsule 04/23/20 04/29/20 Unknown Rx Aspirin 325 mg PO QDAY #30 tablet 05/01/20 Unknown Rx AtorvaSTATin [Lipitor] 40 mg PO QHS #30 tablet 05/01/20 Unknown Rx Clopidogrel [Plavix] 75 mg PO QDAY #30 tablet 05/01/20 Unknown Rx Insulin Glargine [Lantus VIAL] 10 units SUB-Q QHS 30 Days 05/01/20 04/29/20 1 06/14/19 Rx amLODIPine 10 mg PO QDAY #30 tablet 05/01/20 Unknown Rx carvediloL [Coreg] 6.25 mg PO BID #60 tablet 05/01/20 Unknown Rx hydrALAZINE [Apresoline TAB] 100 mg PO Q8HR #90 tablet 05/01/20 Unknown Rx Furosemide [Lasix TAB] 80 mg PO QDAY #14 tablet 05/08/20 Unknown Rx Acetaminophen [Non-Aspirin Extra 500 mg PO Q6HR PRN #30 tablet 05/24/20 Unknown Rx Strength] Metoclopramide [Reglan] 10 mg PO QID PRN #30 tablet 05/24/20 Unknown Rx ED Physical Exam - General Limitations: Language Barrier General appearance: alert, in no apparent distress - Head Head exam: Present: atraumatic, normocephalic - Eye Eye exam: Present: normal appearance (Visual acuity intact to finger counting in color perception at a close distance), PERRL, EOMI, other. Absent: nystagmus - ENT ENT exam: Present: normal exam, normal orophraynx, mucous membranes moist, normal external ear exam - Neck Neck exam: Present: normal inspection, full ROM. Absent: tenderness, meningismus - Respiratory Respiratory exam: Present: normal lung sounds bilaterally. Absent: respiratory distress, wheezes, rales, rhonchi, stridor, decreased breath sounds - Cardiovascular Cardiovascular Exam: Present: regular rate, normal rhythm, normal heart sounds. Absent: bradycardia, tachycardia, irregular rhythm, systolic murmur, diastolic murmur, rubs, gallop - GI/Abdominal GI/Abdominal exam: Present: soft. Absent: distended, tenderness, guarding, rebound, rigid, pulsatile mass - Rectal Rectal exam: Present: deferred - Extremities Exam Extremities exam: Present: normal inspection, full ROM, pedal edema (2-3+ edema in the bilateral lower extremities, chronic. Chronic venous stasis changes noted.), other (2+ pulses noted in the bilateral upper and lower extremities. There is no palpable cord. negative Homans sign. Muscular compartments are soft. The pelvis is stable.). Absent: calf tenderness - Back Exam Back exam: Present: normal inspection, full ROM. Absent: tenderness, CVA tenderness (R), CVA tenderness (L), paraspinal tenderness, vertebral tenderness - Neurological Exam Neurological exam: Present: alert (There is no past pointing.), normal gait, other (No facial droop. Tongue midline. Extraocular movements intact bilaterally. Facial sensation intact to light touch in V1, V2, V3 distribution bilaterally. 5 and a 5 strength in 4 extremities. Sensation intact to light touch in 4 extremities.). Absent: motor sensory deficit - Psychiatric Psychiatric exam: Present: normal affect, normal mood - Skin Skin exam: Present: warm, dry, intact, normal color. Absent: rash ED Course Vital Signs 05/23/20 22:03 Temperature 98.7 F Pulse Rate 77 Respiratory 18 Rate Blood Pressure 135/69 O2 Sat by Pulse 96 Oximetry - Reevaluation(s) Reevaluation #1: 05/24/20 02:20 Differential diagnosis, including but not limited to: Allodynia, migraine headache, tension headache, cluster headache, occipital migraine Assessment and plan: 54-year-old gentleman, who is known to myself previously, complaining of nonspecific headache. The headache has been constant for the past 4 days, it is not described is sudden or thunderclap in nature, not maximal in intensity, within the first hour of onset. He has had multiple recent and MR angiograms, which were negative for aneurysmal disease. The patient walks with a steady gait, and has an unremarkable neurologic exam. It appears that his primary impetus for presenting to the emergency room is lack of ability to follow-up as an outpatient. We will treat his symptoms, obtain noncontrast CT scan of the brain, and reassess. I discussed this extensively with both the patient and his daughter. Renal insufficiency is chronic. X-ray of the chest reviewed and appreciated, unchanged from prior. Laboratory studies were sent prior to my personal evaluation. Patient denied chest pain to myself. Do not see indication for repeat cardiac risk ratification, as patient's primary complaint is headache at this time. Initially, there was some confusion on triage nurse, as she thought that the patient may have been hospitalized at another hospital in [place] for brain bleed. However, the patient's daughter has clarify this. She states the patient has not gone to [place] recently, but he used to live there, that he has never had a brain bleed that she is aware of. She is aware that he has stenosis and "clots", consistent with recent history of TIA/stroke Reevaluation #2: 05/24/20 02:35 CT scan of the brain is negative for acute findings. Reevaluation #3: 05/24/20 03:00 CT scan of the brain negative for acute findings. Patient resting comfortably in stretcher, and in no acute distress. Still walking with a steady gait. Repeat neurologic examination unchanged. ED Medical Decision Making - Lab Data Result diagrams: 05/23/20 22:30 05/23/20 22:30 Vital Signs 05/23/20 22:03 Temperature 98.7 F Pulse Rate 77 Respiratory 18 Rate Blood Pressure 135/69 O2 Sat by Pulse 96 Oximetry Lab Results 05/23/20 05/23/20 05/23/20 Range/Units 22:30 22:30 22:35 WBC 5.9 (4.5-11.0) K/mm3 RBC 2.76 L (3.65-5.03) M/mm3 Hgb 8.5 L (11.8-15.2) gm/dl Hct 24.9 L (35.5-45.6) % MCV 91 (84-94) fl MCH 31 (28-32) pg MCHC 34 (32-34) % RDW 12.6 L (13.2-15.2) % Plt Count 101 L (140-440) K/mm3 Lymph % (Auto) 29.8 (13.4-35.0) % [place] % (Auto) 9.6 H (0.0-7.3) % Eos % (Auto) 5.9 H (0.0-4.3) % Baso % (Auto) 0.9 (0.0-1.8) % Lymph # (Auto) 1.8 (1.2-5.4) K/mm3 [place] # (Auto) 0.6 (0.0-0.8) K/mm3 Eos # (Auto) 0.3 (0.0-0.4) K/mm3 Baso # (Auto) 0.1 (0.0-0.1) K/mm3 Seg Neutrophils % 53.8 (40.0-70.0) % Seg Neutrophils # 3.2 (1.8-7.7) K/mm3 PT 13.5 (12.2-14.9) Sec. INR 1.05 (0.87-1.13) Sodium 138 (137-145) mmol/L Potassium 4.9 (3.6-5.0) mmol/L Chloride 104.4 (98-107) mmol/L Carbon Dioxide 22 (22-30) mmol/L Anion Gap 17 mmol/L BUN 50 H (9-20) mg/dL Creatinine 3.3 H (0.8-1.3) mg/dL Estimated GFR 20 ml/min BUN/Creatinine Ratio 15 % Glucose 184 H (75-100) mg/dL Calcium 8.0 L (8.4-10.2) mg/dL Magnesium (1.7-2.3) mg/dL Total Bilirubin < 0.20 (0.1-1.2) mg/dL AST 44 H (5-40) units/L ALT 39 (7-56) units/L Alkaline Phosphatase 106 (35-129) units/L Total Creatine Kinase (55-170) units/L Troponin T 0.012 (0.00-0.029) ng/mL NT-Pro-B Natriuret Pep (0-900) pg/mL Total Protein 6.1 L (6.3-8.2) g/dL Albumin 3.6 L (3.9-5) g/dL Albumin/Globulin Ratio 1.4 % 05/23/20 Range/Units 22:35 WBC (4.5-11.0) K/mm3 RBC (3.65-5.03) M/mm3 Hgb (11.8-15.2) gm/dl Hct (35.5-45.6) % MCV (84-94) fl MCH (28-32) pg MCHC (32-34) % RDW (13.2-15.2) % Plt Count (140-440) K/mm3 Lymph % (Auto) (13.4-35.0) % [place] % (Auto) (0.0-7.3) % Eos % (Auto) (0.0-4.3) % Baso % (Auto) (0.0-1.8) % Lymph # (Auto) (1.2-5.4) K/mm3 [place] # (Auto) (0.0-0.8) K/mm3 Eos # (Auto) (0.0-0.4) K/mm3 Baso # (Auto) (0.0-0.1) K/mm3 Seg Neutrophils % (40.0-70.0) % Seg Neutrophils # (1.8-7.7) K/mm3 PT (12.2-14.9) Sec. INR (0.87-1.13) Sodium (137-145) mmol/L Potassium (3.6-5.0) mmol/L Chloride (98-107) mmol/L Carbon Dioxide (22-30) mmol/L Anion Gap mmol/L BUN (9-20) mg/dL Creatinine (0.8-1.3) mg/dL Estimated GFR ml/min BUN/Creatinine Ratio % Glucose (75-100) mg/dL Calcium (8.4-10.2) mg/dL Magnesium 2.10 (1.7-2.3) mg/dL Total Bilirubin (0.1-1.2) mg/dL AST (5-40) units/L ALT (7-56) units/L Alkaline Phosphatase (35-129) units/L Total Creatine Kinase 551 H (55-170) units/L Troponin T (0.00-0.029) ng/mL NT-Pro-B Natriuret Pep 1439 H (0-900) pg/mL Total Protein (6.3-8.2) g/dL Albumin (3.9-5) g/dL Albumin/Globulin Ratio % - EKG Data -: EKG Interpreted by Ne - EKG Data 05/24/20 02:23 Sinus rhythm, 71 bpm, normal axis, QTC prolonged, right bundle branch block, left ventricular hypertrophy. Abnormal EKG. Not a STEMI - Radiology Data Radiology results: report reviewed, image reviewed CHEST 1 VIEW 10:36 PM INDICATION / CLINICAL INFORMATION: Cough and dyspnea. COMPARISON: 04/14/20 through 05/11/20. FINDINGS: SUPPORT DEVICES: None. HEART / MEDIASTINUM: The heart size and pulmonary vasculature are normal. LUNGS / PLEURA: Moderate focal subsegmental parenchymal opacity in the right upper lobe has not changed over serial exams. No new pulmonary or pleural abnormality. No pneumothorax. ADDITIONAL FINDINGS: Mild thoracic spondylosis. IMPRESSION: 1. No acute abnormality or significant change. 2. Moderate focal subsegmental atelectasis/scarring in the right upper lobe has not changed since 04/14/20. Signer Name: Jair Mejía MD Signed: 05/23/2020 9:38 PM Workstation Name: [id number] MR MRA/MRV head wo con INDICATION / CLINICAL INFORMATION: 54 years Male; MAIN. TECHNIQUE: 3-D time of flight. NASCET type criteria used to evaluate stenoses. COMPARISON: None available. FINDINGS: INTERNAL CAROTID ARTERIES: There is mild narrowing in the communicating portions of the internal carotid arteries - not felt to be hemodynamically significant. VERTEBROBASILAR SYSTEM: Mild narrowing seen near the origin of the basilar artery, as well as distally in the basilar artery. Findings proximally might be hemodynamically significant. Distal vertebral arteries are grossly normal. DISTAL BRANCHES: Distal branches of the anterior and posterior cerebral arteries are fairly symmetric in appearance and number. Focal area of high-grade narrowing is seen in the occipital M1 segment of the right middle cerebral artery. Significant narrowing suggested in the A1 segment, somewhat diffusely, on the right, a component of which certainly may be on a congenital basis. There is also moderate to high- grade, focal narrowing at the origin of the left A1 segment. P1 segment on the right is hypoplastic. ANEURYSM: None identified. IMPRESSION: Multiple areas of narrowing in the anterior and posterior circulation identified, as described above. Signer Name: Hugo Isaac MD, III Signed: 04/15/2020 1:42 PM Workstation Name: [id number] MRA NECK WITHOUT CONTRAST HISTORY: Cerebrovascular accident. Headache. COMPARISON: none TECHNIQUE: Routine MRA neck performed. 3-D/MIP reformats postprocessed. Percentage stenosis is determined by direct quantitative measu rements of distal internal carotid artery diameter compared with normal reference segments or by criteria similar to NASCET where applicable. CONTRAST: none FINDINGS: MRA NECK: Aortic arch: Not evaluated on this noncontrast MRA neck. Vertebral arteries: Balanced vertebral arteries noted. Both vertebral arteries contribute to the basilar artery origin. Right carotid artery:Right common carotid artery, the carotid bifurcation and cervical portions of the right internal carotid arteries all have an unremarkable appearance. Left carotid artery:The left common carotid artery, left carotid bifurcation and cervical portions of the left internal carotid artery all have an unremarkable appearance. SUMMARY:The degree of stenosis, if any, is determined utilizing NASCET like criteria. In this case there is no indication of stenosis at the carotid bifurcations or elsewhere. IMPRESSION: 1. No indication of hemodynamically significant stenosis at the carotid bifurcations or elsewhere. Signer Name: Dejon Rousseau MD Signed: 04/15/2020 2:46 PM Workstation Name: [id number] MRA HEAD WITHOUT CONTRAST HISTORY: Stroke COMPARISON: 04/15/2020 TECHNIQUE: Routine MRA of the head is performed. 3-D/MIP reformats postprocessed. NASCET criteria was utilized. CONTRAST: None. FINDINGS: Intracranial vertebral arteries: No significant abnormality. Basilar artery: No significant abnormality. Posterior cerebral arteries: The right P1 segment is hypoplastic. A moderate right posterior communicating artery is identified. No high-grade stenosis or occlusion. Intracranial internal carotid arteries: No significant abnormality. Anterior cerebral arteries: No significant abnormality. Middle cer ebral arteries: Moderate to severe narrowing is again seen in the right M1 segment. The remainder of the right MCA and left MCA are within normal limits. Additional findings: None. IMPRESSION: No change since 04/15/2020. Moderate to severe narrowing in the proximal right MCA, M1 segment, is again noted. No large vessel occlusion or aneurysm. Signer Name: Baltazar Marcos Jr, MD Signed: 04/30/2020 11:58 AM Workstation Name: [id number] MRI BRAIN WITHOUT CONTRAST INDICATION / CLINICAL INFORMATION: stroke. TECHNIQUE: Multisequence, multiplanar images were obtained. COMPARISON: CT head on 620. MR brain 04/15/2020. FINDINGS: CEREBRAL and CEREBELLAR HEMISPHERES: No evidence of mass or mass effect. No midline shift. No acute hemorrhage. No diffusion restriction to suggest acute infarct. No extra-axial fluid collection. Minimal nonspecific chronic white matter changes are again noted and unchanged. VENTRICLES: Normal in size and configuration for age. VISUALIZED ORBITS: No significant abnormality. VISUALIZED PARANASAL SINUSES: No significant abnormality. ADDITIONAL FINDINGS: None. IMPRESSION: No evidence for acute ischemia, hemorrhage or mass. Minimal nonspecific chronic white matter changes. No change since MR brain dated 04/15/2020. MRA HEAD WITHOUT CONTRAST HISTORY: Stroke COMPARISON: 04/15/2020 TECHNIQUE: Routine MRA of the head is performed. 3-D/MIP reformats postprocessed. NASCET criteria was utilized. CONTRAST: None. FINDINGS: Intracranial vertebral arteries: No significant abnormality. Basilar artery: No significant abnormality. Posterior cerebral arteries: The right P1 segment is hypoplastic. A moderate right posterior communicating artery is identified. No high-grade stenosis or occlusion. Intracranial internal carotid arteries: No significant abnormality. Anterior cerebral arteries: No significant abnormality. Middle cerebral arteries: Moderate to severe narrowing is again seen in the right M1 segment. The remainder of the right MCA and left MCA are within normal limits. Additional findings: None. IMPRESSION: No change since 04/15/2020. Moderate to severe narrowing in the proximal right MCA, M1 segment, is again noted. No large vessel occlusion or aneurysm. Signer Name: Baltazar Marcos Jr, MD Signed: 04/30/2020 11:58 AM Workstation Name: [id number] Critical care attestation.: If time is entered above; I have spent that time in minutes in the direct care of this critically ill patient, excluding procedure time. ED Disposition Clinical Impression: Renal insufficiency, Peripheral edema, Headache Disposition: DC-01 TO HOME OR SELFCARE Is pt being admited?: No Does the pt Need Aspirin: No Condition: Stable Instructions: Edema, Chronic Kidney Disease, Adult, General Headache Without Cause, [id number] Additional Instructions: Please continue current outpatient medications. Please discontinue hydrocodone acetaminophen. Patient may take acetaminophen prescription, as needed for headache, alternating with Reglan medication, as needed for headache. We recommend follow-up with a primary care doctor within the next month. Recommend follow-up with a neurologist within the next month. Recommend follow-up with a robotics specialist, kidney doctor within the next month. Primary care: Dr John Hale Nephrology: Dr Atkinson Neurology: Dr Baugh. Dr Arriaga,Dr Soliz, Dr Dewey Please return to the emergency room right away with new pain, worsened pain, migration of pain, projectile vomiting, change in mental status, confusion, inability to tolerate liquid feeds, new, worsened or different symptoms not pre sent on the initial emergency room evaluation. For the patient's convenience, numerous local specialists have been listed that they may follow-up with. Referrals: TIFFANY HALE MD [Staff Physician] - 3-5 Days FABY ATKINSON MD [Staff Physician] - 3-5 Days LATOYA BAUGH MD [Staff Physician] - 3-5 Days MARILYN MENDEZ MD [Staff Physician] - 3-5 Days EMMA ARRIAGA MD [Staff Physician] - 3-5 Days YVONNE DEWEY MD [Staff Physician] - 3-5 Days
--- NOTE | 2020-05-24 02:34 | Cat Scan Report ---
CT HEAD/BRAIN WO CON INDICATION / CLINICAL INFORMATION: Acute headache. TECHNIQUE: All CT scans at this location are performed using CT dose reduction for ALARA by means of automated e xposure control. COMPARISON: 04/29/20. FINDINGS: The ventricular system is normal in size and configuration. No focal lesion or mass effect is seen. T here is no evidence of intracranial hemorrhage or major vessel occlusion. The calvarium is intact. Th e left mastoid air cells are hypoplastic. There is mild chronic mucosal thickening involving the righ t maxillary antrum. The other visualized paranasal sinuses and right mastoid air cells are clear. IMPRESSION: No acute abnormality. Signer Name: Jair Mejía MD Signed: 05/24/2020 2:29 AM Workstation Name: [id number]
[2020-05-24 03:36] VITALS: BP 128/78
== END 2020-05-24 03:28 | disposition home or self-care (01) ==
LOC: ED 21:49
DX: R51.9 Headache, unspecified (principal); N28.9 Disorder of kidney and ureter, unspecified; R60.9 Edema, unspecified; I10 Essential (primary) hypertension; E11.9 Type 2 diabetes mellitus without complications; Z79.899 Other long term (current) drug therapy; Z98.890 Other specified postprocedural states; Z79.82 Long term (current) use of aspirin
CPT/HCPCS: 36415; 70450; 71045; 80053; 82550; 83735; 83880; 84484; 85025; 85610; 93005; 96374; 96375; 99284; J1200; J2765